=== PATIENT | female | born 1945 | race African-American/Black ===

== ENCOUNTER 2017-10-18 12:32 | Inpatient (IN) ==
[2017-10-18 14:20] LABS: Basophils # 0.1 10*3/uL (0.0-0.2); Basophils % 0.7 % (0.0-0.8); Eosinophils # 0.1 10*3/uL (0.0-0.87); Eosinophils % 0.7 % (0.00-10.9); Hematocrit 33.7 VOL% (35.7-47.0); Hemoglobin 11.8 GM/DL (12.0-16.0); Immature Granulocytes % 0.7 %; Immature Granulocytes Absolute 0.13 #; Lymphocytes # 2.9 10*3/uL (1.4-4.0); Lymphocytes % 16.7 % (21.3-54.2); Mean Corpuscular Hemoglobin 28 PG (27-34); Mean Corpuscular Volume 81.2 FL (87-102); Mean Platelet Volume 8.3 FL (9.6-12.0); Monocytes # 1.2 10*3/uL (0.11-0.8); Monocytes % 7.2 % (1.7-12.7); Neutrophils # 12.8 10*3/uL (1.4-7.4); Platelet Count 495 T/CUMM (130-400); Red Blood Count 4.15 MC/CUMM (3.8-5.5); Red Cell Distribution Width 13.4 % (9.3-17.3); White Blood Count 17.3 T/CUMM (4-12)
[2017-10-18 14:36] LABS: Albumin 2.9 G/DL (3.4-5.0); Bilirubin,Total 0.4 MG/DL (0.2-1.0); Calcium 8.6 MG/DL (8.5-10.1); Osmolality,Calculated 244.8 MOS/KG (273-304); Potassium 4.1 MMOL/L (3.5-5.1); Total Protein 9.4 G/DL (6.4-8.3)
[2017-10-18 15:39] LABS: Apearance,Urine CLOUDY (Clear); Bacteria,Urine Many /HPF (Few); Bilirubin,Urine Negative (Negative); Blood, Urine Negative (Negative); Glucose,Urine (UA) 150 mg/dL (Negative); Ketones,Urine Negative (Negative); Mucus,Urine Few /LPF (Occasional); Nitrite,Urine Negative (Negative); Protein,Urine 100 MG/DL; Squamous Epithelial Cell,Urine Occasional /HPF (0-10); Urine Color Yellow (Yellow); Urine Specific Gravity 1.011 (1.001-1.035); Urine Urobilinogen < 2.0 EU/DL (0.2-1.0); WBC,Urine 234 /HPF (0-6)
[2017-10-18] MEDS ORDERED: cefTRIAXone 1,000 MG in SODIUM CHLORIDE 0.9% 100 ML IV STA (17:27)
[2017-10-18] MEDS ORDERED: SODIUM CHLORIDE 0.9% 1,000 ML IV STA (17:27)
[2017-10-18] MEDS ORDERED: cefTRIAXone 1,000 MG VIAL ONE (18:27)
[2017-10-18 18:51] LABS: Lactic Acid 3.6 MMOL/L (0.4-2.0)
[2017-10-18] MEDS ORDERED: ACETAMINOPHEN 325 MG TABLET PO PRN (18:51)
[2017-10-18] MEDS ORDERED: LACTULOSE 20 GM/30 ML UDCUP PO PRN (18:51)
[2017-10-18] MEDS ORDERED: DOCUSATE SODIUM 100 MG CAPSULE PO PRN (18:51)
[2017-10-18] MEDS ORDERED: SODIUM CHLORIDE 0.9% 1,700 ML IV ONE (18:55)
[2017-10-18] MEDS ORDERED: GLUCAGON 1 MG VIAL IM PRN (18:58)
[2017-10-18] MEDS ORDERED: DEXTROSE 50% 25 GM/50 ML VIAL IV PRN (18:58)
[2017-10-18] MEDS: SODIUM CHLORIDE 0.9% 1,000 ML IV SCH (21:55)
[2017-10-18 22:03] LABS: Basophils # 0.1 10*3/uL (0.0-0.2); Basophils % 0.3 % (0.0-0.8); Eosinophils # 0.1 10*3/uL (0.0-0.87); Eosinophils % 0.4 % (0.00-10.9); Hematocrit 32.3 VOL% (35.7-47.0); Hemoglobin 11.1 GM/DL (12.0-16.0); Immature Granulocytes % 0.4 %; Immature Granulocytes Absolute 0.07 #; Lymphocytes # 3.3 10*3/uL (1.4-4.0); Lymphocytes % 19.5 % (21.3-54.2); Mean Corpuscular HGB Conc 34.4 GM/DL (32-36); Mean Corpuscular Hemoglobin 28 PG (27-34); Mean Corpuscular Volume 81.4 FL (87-102); Mean Platelet Volume 8.2 FL (9.6-12.0); Monocytes # 1.3 10*3/uL (0.11-0.8); Monocytes % 7.7 % (1.7-12.7); Neutrophils # 12.1 10*3/uL (1.4-7.4); Neutrophils % 71.7 % (38.7-73.9); Platelet Count 478 T/CUMM (130-400); Red Blood Count 3.97 MC/CUMM (3.8-5.5); Red Cell Distribution Width 13.1 % (9.3-17.3); White Blood Count 16.9 T/CUMM (4-12)
[2017-10-18] MEDS: LEVOFLOXACIN INJ 500 MG in PREMIX 1 EACH IV SCH (22:11)
[2017-10-18] MEDS: INSULIN LISPRO 100 UNIT/ML SUBCUT SCH (22:15)
[2017-10-18 22:20] LABS: Alanine Aminotransferase 13 U/L (13-56); Albumin 2.8 G/DL (3.4-5.0); Alkaline Phosphatase 85 U/L (45-117); Aspartate Amino Transferase 24 U/L (0-37); Bilirubin,Total < 0.39 MG/DL (0.2-1.0); Blood Urea Nitrogen 13 MG/DL (7-18); Calcium 8.4 MG/DL (8.5-10.1); Glucose 166 MG/DL (74-106); Osmolality,Calculated 256.4 MOS/KG (273-304); Potassium 4.5 MMOL/L (3.5-5.1); Sodium 126 MMOL/L (136-145); Total Protein 7.7 G/DL (6.4-8.3)
[2017-10-18 22:31] LABS: Calcium 8.3 MG/DL (8.5-10.1); Osmolality,Calculated 255.4 MOS/KG (273-304); Potassium 4.5 MMOL/L (3.5-5.1)
[2017-10-19 07:22] LABS: Basophils # 0.1 10*3/uL (0.0-0.2); Basophils % 0.4 % (0.0-0.8); Eosinophils # 0.2 10*3/uL (0.0-0.87); Hematocrit 28.7 VOL% (35.7-47.0); Hemoglobin 10.2 GM/DL (12.0-16.0); Immature Granulocytes % 0.4 %; Immature Granulocytes Absolute 0.07 #; Lymphocytes # 3.1 10*3/uL (1.4-4.0); Lymphocytes % 19.8 % (21.3-54.2); Mean Corpuscular HGB Conc 35.5 GM/DL (32-36); Mean Corpuscular Hemoglobin 28 PG (27-34); Mean Corpuscular Volume 79.1 FL (87-102); Mean Platelet Volume 8.3 FL (9.6-12.0); Monocytes # 1.4 10*3/uL (0.11-0.8); Monocytes % 8.7 % (1.7-12.7); Neutrophils # 10.8 10*3/uL (1.4-7.4); Neutrophils % 69.7 % (38.7-73.9); Platelet Count 440 T/CUMM (130-400); Red Blood Count 3.63 MC/CUMM (3.8-5.5); Red Cell Distribution Width 13.3 % (9.3-17.3); White Blood Count 15.6 T/CUMM (4-12)
[2017-10-19 07:49] LABS: Calcium 8.1 MG/DL (8.5-10.1); Osmolality,Calculated 258.1 MOS/KG (273-304); Potassium 4.1 MMOL/L (3.5-5.1)
[2017-10-19 07:51] LABS: Calcium 8.3 MG/DL (8.5-10.1); Osmolality,Calculated 258.1 MOS/KG (273-304); Potassium 4.1 MMOL/L (3.5-5.1)
[2017-10-19] MEDS: INSULIN LISPRO 100 UNIT/ML SUBCUT SCH ×4 (08:32→21:56)
[2017-10-19] MEDS: PANTOPRAZOLE 40 MG TABLET PO SCH (08:33)
[2017-10-19 11:25] LABS: Calcium 8.3 MG/DL (8.5-10.1); Osmolality,Calculated 260.1 MOS/KG (273-304)
[2017-10-19] MEDS: SODIUM CHLORIDE 0.9% 1,000 ML IV SCH (21:53)
[2017-10-19] MEDS: LEVOFLOXACIN INJ 500 MG in PREMIX 1 EACH IV SCH (21:54)
[2017-10-20] MEDS: PANTOPRAZOLE 40 MG TABLET PO SCH (09:09)
[2017-10-20] MEDS: INSULIN LISPRO 100 UNIT/ML SUBCUT SCH ×4 (09:09→23:59)
[2017-10-20] MEDS: SODIUM CHLORIDE 0.9% 1,000 ML IV SCH (17:06)
[2017-10-20] MEDS: LEVOFLOXACIN INJ 500 MG in PREMIX 1 EACH IV SCH (21:52)
[2017-10-21] MEDS: INSULIN LISPRO 100 UNIT/ML SUBCUT SCH (11:10)
[2017-10-21] MEDS: PANTOPRAZOLE 40 MG TABLET PO SCH (11:10)
[2017-10-21 12:53] VITALS: BP 138/82
== END 2017-10-21 12:30 | disposition home or self-care (01) | DRG 689 ==
LOC: N.ED 12:32 → N.EDINP 17:30 → N.2E 19:27
PROVIDERS: ADMIT Internal Medicine; ATTEND Internal Medicine

== ENCOUNTER 2017-10-26 14:14 | Inpatient (IN) ==
[2017-10-26] MEDS ORDERED: DEXTROSE 50% 25 GM/50 ML VIAL IV PRN ×2 (15:43→18:59)
[2017-10-26] MEDS ORDERED: GLUCAGON 1 MG VIAL IM PRN ×2 (15:43→18:59)
[2017-10-26 16:45] LABS: Basophils % 0.2 % (0.0-0.8); Eosinophils % 0.2 % (0.00-10.9); Hematocrit 36.3 VOL% (35.7-47.0); Hemoglobin 12.5 GM/DL (12.0-16.0); Immature Granulocytes % 0.7 %; Immature Granulocytes Absolute 0.09 #; Lymphocytes # 1.9 10*3/uL (1.4-4.0); Lymphocytes % 14.1 % (21.3-54.2); Mean Corpuscular HGB Conc 34.4 GM/DL (32-36); Mean Corpuscular Hemoglobin 28 PG (27-34); Mean Corpuscular Volume 81.4 FL (87-102); Mean Platelet Volume 7.9 FL (9.6-12.0); Monocytes # 0.7 10*3/uL (0.11-0.8); Monocytes % 5.1 % (1.7-12.7); Neutrophils # 10.5 10*3/uL (1.4-7.4); Neutrophils % 79.7 % (38.7-73.9); Platelet Count 560 T/CUMM (130-400); Red Blood Count 4.46 MC/CUMM (3.8-5.5); Red Cell Distribution Width 14.1 % (9.3-17.3); White Blood Count 13.2 T/CUMM (4-12)
[2017-10-26 17:09] LABS: Albumin 3.2 G/DL (3.4-5.0); Bilirubin,Total 0.7 MG/DL (0.2-1.0); Calcium 8.7 MG/DL (8.5-10.1); Osmolality,Calculated 257.8 MOS/KG (273-304); Potassium 4.3 MMOL/L (3.5-5.1); Total Protein 7.8 G/DL (6.4-8.3)
[2017-10-26 17:58] LABS: Apearance,Urine CLEAR (Clear); Bacteria,Urine Few /HPF (Few); Bilirubin,Urine Negative (Negative); Blood, Urine Negative (Negative); Glucose,Urine (UA) 50 mg/dL (Negative); Hyaline Casts,Urine 2 /LPF (0-3); Ketones,Urine Negative (Negative); Mucus,Urine Occasional /LPF (Occasional); Nitrite,Urine Negative (Negative); Protein,Urine 100 MG/DL; Urine Color Yellow (Yellow); Urine Specific Gravity 1.008 (1.001-1.035); Urine Urobilinogen < 2.0 EU/DL (0.2-1.0)
[2017-10-26] MEDS ORDERED: ONDANSETRON 4 MG/2 ML VIAL IV PRN (18:55)
[2017-10-26] MEDS ORDERED: ACETAMINOPHEN 325 MG TABLET PO PRN (18:55)
[2017-10-26] MEDS: SODIUM CHLORIDE 0.9% 1,000 ML IV SCH (21:25)
[2017-10-26] MEDS: CIPROFLOXACIN INJ 400 MG in PREMIX 1 EACH IV SCH (21:27)
[2017-10-26] MEDS: INSULIN REGULAR 100 UNIT/ML SUBCUT SCH (21:28)
[2017-10-27 05:18] LABS: Basophils % 0.3 % (0.0-0.8); Eosinophils # 0.1 10*3/uL (0.0-0.87); Eosinophils % 0.6 % (0.00-10.9); Hematocrit 31.2 VOL% (35.7-47.0); Hemoglobin 10.6 GM/DL (12.0-16.0); Immature Granulocytes % 0.4 %; Immature Granulocytes Absolute 0.05 #; Lymphocytes # 3.5 10*3/uL (1.4-4.0); Lymphocytes % 27.8 % (21.3-54.2); Mean Corpuscular Hemoglobin 28 PG (27-34); Mean Corpuscular Volume 82.5 FL (87-102); Mean Platelet Volume 8.2 FL (9.6-12.0); Monocytes # 1.3 10*3/uL (0.11-0.8); Monocytes % 10.5 % (1.7-12.7); Neutrophils # 7.7 10*3/uL (1.4-7.4); Neutrophils % 60.4 % (38.7-73.9); Platelet Count 491 T/CUMM (130-400); Red Blood Count 3.78 MC/CUMM (3.8-5.5); Red Cell Distribution Width 14.1 % (9.3-17.3); White Blood Count 12.7 T/CUMM (4-12)
[2017-10-27 05:36] LABS: Calcium 8.5 MG/DL (8.5-10.1); Osmolality,Calculated 247.9 MOS/KG (273-304); Potassium 4.3 MMOL/L (3.5-5.1)
[2017-10-27] MEDS: INSULIN REGULAR 100 UNIT/ML SUBCUT SCH ×4 (09:00→20:17)
[2017-10-27] MEDS: CIPROFLOXACIN INJ 400 MG in PREMIX 1 EACH IV SCH ×2 (10:40→20:18)
[2017-10-27] MEDS: SODIUM CHLORIDE 0.9% 1,000 ML IV SCH (10:40)
[2017-10-27] MEDS: ASPIRIN EC 81 MG TABLET PO SCH (10:42)
[2017-10-27] MEDS: CHOLECALCIFEROL 5,000 UNIT TABLET PO SCH (10:42)
[2017-10-27] MEDS: PANTOPRAZOLE 40 MG TABLET PO SCH (10:42)
[2017-10-28] MEDS: SODIUM CHLORIDE 0.9% 1,000 ML IV SCH ×2 (01:39→19:57)
[2017-10-28 06:40] LABS: Calcium 8.3 MG/DL (8.5-10.1); Osmolality,Calculated 263.8 MOS/KG (273-304); Potassium 4.3 MMOL/L (3.5-5.1)
[2017-10-28] MEDS: CIPROFLOXACIN INJ 400 MG in PREMIX 1 EACH IV SCH ×2 (09:04→20:58)
[2017-10-28] MEDS: INSULIN REGULAR 100 UNIT/ML SUBCUT SCH ×4 (09:07→20:59)
[2017-10-28] MEDS: CHOLECALCIFEROL 5,000 UNIT TABLET PO SCH (09:08)
[2017-10-28] MEDS: ASPIRIN EC 81 MG TABLET PO SCH (09:08)
[2017-10-28] MEDS: PANTOPRAZOLE 40 MG TABLET PO SCH (09:09)
[2017-10-28] MEDS: metFORMIN 500 MG TABLET PO SCH (10:39)
[2017-10-28] MEDS ORDERED: POLYETHYLENE GLYCOL POWDER 17 GM PACK PO PRN (17:41)
[2017-10-29] MEDS: SODIUM CHLORIDE 0.9% 1,000 ML IV SCH (02:30)
[2017-10-29 06:19] LABS: Basophils # 0.1 10*3/uL (0.0-0.2); Basophils % 0.7 % (0.0-0.8); Eosinophils # 0.3 10*3/uL (0.0-0.87); Eosinophils % 2.2 % (0.00-10.9); Hematocrit 29.4 VOL% (35.7-47.0); Hemoglobin 10.1 GM/DL (12.0-16.0); Immature Granulocytes % 0.3 %; Immature Granulocytes Absolute 0.03 #; Lymphocytes % 25.3 % (21.3-54.2); Mean Corpuscular HGB Conc 34.4 GM/DL (32-36); Mean Corpuscular Hemoglobin 28 PG (27-34); Mean Corpuscular Volume 82.4 FL (87-102); Monocytes # 1.3 10*3/uL (0.11-0.8); Monocytes % 11.2 % (1.7-12.7); Neutrophils # 7.1 10*3/uL (1.4-7.4); Neutrophils % 60.3 % (38.7-73.9); Platelet Count 393 T/CUMM (130-400); Red Blood Count 3.57 MC/CUMM (3.8-5.5); Red Cell Distribution Width 14.4 % (9.3-17.3); White Blood Count 11.7 T/CUMM (4-12)
[2017-10-29 06:54] LABS: Calcium 8.1 MG/DL (8.5-10.1); Osmolality,Calculated 263.7 MOS/KG (273-304); Potassium 4.3 MMOL/L (3.5-5.1)
[2017-10-29] MEDS: CHOLECALCIFEROL 5,000 UNIT TABLET PO SCH (09:18)
[2017-10-29] MEDS: ASPIRIN EC 81 MG TABLET PO SCH (09:18)
[2017-10-29] MEDS: metFORMIN 500 MG TABLET PO SCH (09:18)
[2017-10-29] MEDS: PANTOPRAZOLE 40 MG TABLET PO SCH (09:20)
[2017-10-29] MEDS: INSULIN REGULAR 100 UNIT/ML SUBCUT SCH (09:22)
[2017-10-29] MEDS: CIPROFLOXACIN INJ 400 MG in PREMIX 1 EACH IV SCH (09:35)
[2017-10-29 11:17] VITALS: BP 125/92
== END 2017-10-29 12:12 | disposition home or self-care (01) | DRG 637 ==
LOC: EDBD → EDUNIT# → N.ED 14:14 → N.EDINP 18:11 → N.3E 19:59

== ENCOUNTER 2017-12-17 10:39 | Inpatient (IN) ==
[2017-12-17] MEDS ORDERED: NALOXONE 0.4 MG/ML VIAL ONE (10:59)
[2017-12-17] MEDS ORDERED: NALOXONE 0.4 MG/ML VIAL IV STA (11:05)
[2017-12-17] MEDS ORDERED: SODIUM CHLORIDE 0.9% 1,000 ML IV STA (11:05)
[2017-12-17] MEDS ORDERED: VECURONIUM 10 MG VIAL IV ONE (11:32)
[2017-12-17] MEDS ORDERED: ETOMIDATE 20 MG/10 ML VIAL IV ONE (11:32)
[2017-12-17] MEDS ORDERED: MIDAZOLAM 2 MG/2 ML VIAL ONE (11:43)
[2017-12-17 11:45] LABS: Basophils # 0.1 10*3/uL (0.0-0.2); Basophils % 0.7 % (0.0-0.8); Eosinophils # 0.2 10*3/uL (0.0-0.87); Eosinophils % 1.6 % (0.00-10.9); Hematocrit 32.5 VOL% (35.7-47.0); Hemoglobin 10.9 GM/DL (12.0-16.0); Immature Granulocytes % 0.5 %; Immature Granulocytes Absolute 0.07 #; Lymphocytes # 4.8 10*3/uL (1.4-4.0); Lymphocytes % 33.4 % (21.3-54.2); Mean Corpuscular HGB Conc 33.5 GM/DL (32-36); Mean Corpuscular Hemoglobin 29 PG (27-34); Mean Platelet Volume 9.2 FL (9.6-12.0); Monocytes # 0.8 10*3/uL (0.11-0.8); Monocytes % 5.9 % (1.7-12.7); Neutrophils # 8.3 10*3/uL (1.4-7.4); Neutrophils % 57.9 % (38.7-73.9); Platelet Count 361 T/CUMM (130-400); Red Blood Count 3.78 MC/CUMM (3.8-5.5); Red Cell Distribution Width 15.1 % (9.3-17.3); White Blood Count 14.3 T/CUMM (4-12)
[2017-12-17 11:54] LABS: PT Patient Result 10.1 SECS; Partial Thromboplastin Time 24.7 SECS (0-40)
[2017-12-17] MEDS ORDERED: PHENYLEPHRINE DRIP 40 MG/250 ML PREMIX IV ONE (12:00)
[2017-12-17] MEDS ORDERED: ETOMIDATE 20 MG/10 ML VIAL IV STA (12:07)
[2017-12-17] MEDS ORDERED: MIDAZOLAM 2 MG/2 ML VIAL IV STA (12:07)
[2017-12-17] MEDS ORDERED: VECURONIUM 10 MG VIAL IV STA (12:07)
[2017-12-17 12:20] LABS: Ammonia 18 UMOL/L (11-32)
[2017-12-17 12:24] LABS: Troponin I Only 0.016 NG/ML (0.00-0.045)
[2017-12-17 12:25] LABS: Troponin I Only 0.024 NG/ML (0.00-0.045)
[2017-12-17 12:27] LABS: Lactic Acid 3.5 MMOL/L (0.4-2.0)
[2017-12-17] MEDS ORDERED: MAGNESIUM SULF RIDER 2 GM in PREMIX 1 EACH IV STA (12:38)
[2017-12-17 12:39] LABS: Apearance,Urine CLEAR (Clear); Bacteria,Urine Occasional /HPF (Few); Bilirubin,Urine Negative (Negative); Blood, Urine Negative (Negative); Glucose,Urine (UA) 150 mg/dL (Negative); Hyaline Casts,Urine 3 /LPF (0-3); Ketones,Urine Negative (Negative); Mucus,Urine Occasional /LPF (Occasional); Nitrite,Urine Negative (Negative); Protein,Urine 100 MG/DL; RBC,Urine 11 /HPF (0-4); Urine Color Yellow (Yellow); Urine Specific Gravity 1.015 (1.001-1.035); Urine Urobilinogen < 2.0 EU/DL (0.2-1.0); WBC,Urine 1 /HPF (0-6)
[2017-12-17] MEDS ORDERED: SODIUM CHLORIDE 0.9% 1,900 ML IV ONE ×2 (12:39→15:17)
[2017-12-17] MEDS ORDERED: MAGNESIUM SULF RIDER 50 ML IV ONE (12:44)
[2017-12-17 12:45] LABS: Barbiturates Screen,Urine Negative (Negative); Benzodiazepines Screen,Urine Negative (Negative); Cannabinoid Screen,Urine Negative (Negative); Opiate Screen,Urine Negative (Negative); Phencyclidine Screen,Urine Negative (Negative)
[2017-12-17 13:03] LABS: ABG Base Excess -2.5 MMOL/L (-2.5-2.5); ABG HCO3 22.4 MMOL/L (20-26); ABG PCO2 32.5 MM HG (35-48); ABG PH 7.424 (7.35-7.45); ABG TCO2 19.3 MMOL/L (23-27)
[2017-12-17] MEDS ORDERED: PROPOFOL 1,000 MG/100 ML BOTTLE IV ONE (13:22)
[2017-12-17] MEDS: SODIUM CHLORIDE 0.9% 1,000 ML IV SCH ×2 (13:37→23:50)
[2017-12-17] MEDS: PROPOFOL 1,000 MG/100 ML BOTTLE IV SCH ×2 (13:44→20:36)
[2017-12-17] MEDS ORDERED: VANCOMYCIN 1,000 MG VIAL ONE (13:56)
[2017-12-17 13:59] LABS: Alanine Aminotransferase 14 U/L (13-56); Albumin 2.6 G/DL (3.4-5.0); Alkaline Phosphatase 51 U/L (45-117); Aspartate Amino Transferase 12 U/L (0-37); Bilirubin,Total < 0.39 MG/DL (0.2-1.0); Blood Urea Nitrogen 28 MG/DL (7-18); Calcium 9.1 MG/DL (8.5-10.1); Glucose 208 MG/DL (74-106); Potassium 4.2 MMOL/L (3.5-5.1); Sodium 136 MMOL/L (136-145); Total Protein 6.8 G/DL (6.4-8.3)
[2017-12-17] MEDS: VANCOMYCIN INJ 1,000 MG in SODIUM CHLORIDE 0.9% 250 ML IV SCH (14:21)
[2017-12-17] MEDS: AZTREONAM 2,000 MG in SYRINGE 1 EACH IV SCH ×2 (16:48→21:59)
[2017-12-17 19:37] LABS: Free T4 (Free Thyroxine) 1.04 NG/DL (0.76-1.46); Thyroid Stimulating Hormone 1.25 uIU/ml (0.358-3.74)
[2017-12-17 19:39] LABS: Folate 15.4 NG/ML (5.4-24.0)
[2017-12-17 19:49] LABS: % Iron Saturation 19.8 % (18-50)
[2017-12-18] MEDS: VANCOMYCIN INJ 1,000 MG in SODIUM CHLORIDE 0.9% 250 ML IV SCH ×2 (00:17→13:31)
[2017-12-18] MEDS: PROPOFOL 1,000 MG/100 ML BOTTLE IV SCH ×4 (01:52→22:01)
[2017-12-18 03:27] LABS: ABG Base Excess -0.5 MMOL/L (-2.5-2.5); ABG HCO3 24.1 MMOL/L (20-26); ABG PCO2 29.2 MM HG (35-48); ABG TCO2 20.3 MMOL/L (23-27)
[2017-12-18] MEDS: AZTREONAM 2,000 MG in SYRINGE 1 EACH IV SCH ×4 (03:50→21:59)
[2017-12-18 04:32] LABS: Basophils # 0.1 10*3/uL (0.0-0.2); Basophils % 0.5 % (0.0-0.8); Eosinophils # 0.2 10*3/uL (0.0-0.87); Hematocrit 28.2 VOL% (35.7-47.0); Hemoglobin 9.2 GM/DL (12.0-16.0); Immature Granulocytes % 0.5 %; Immature Granulocytes Absolute 0.07 #; Lymphocytes # 3.1 10*3/uL (1.4-4.0); Lymphocytes % 21.5 % (21.3-54.2); Mean Corpuscular HGB Conc 32.6 GM/DL (32-36); Mean Corpuscular Hemoglobin 28 PG (27-34); Mean Platelet Volume 9.2 FL (9.6-12.0); Monocytes # 0.8 10*3/uL (0.11-0.8); Monocytes % 5.2 % (1.7-12.7); Neutrophils # 10.4 10*3/uL (1.4-7.4); Neutrophils % 71.3 % (38.7-73.9); Platelet Count 333 T/CUMM (130-400); Red Blood Count 3.28 MC/CUMM (3.8-5.5); Red Cell Distribution Width 14.7 % (9.3-17.3); White Blood Count 14.6 T/CUMM (4-12)
[2017-12-18 05:06] LABS: Lactic Acid 2.1 MMOL/L (0.4-2.0)
[2017-12-18 05:07] LABS: Albumin 2.4 G/DL (3.4-5.0); Bilirubin,Total 0.4 MG/DL (0.2-1.0); Calcium 8.2 MG/DL (8.5-10.1); Osmolality,Calculated 282.5 MOS/KG (273-304); Potassium 3.9 MMOL/L (3.5-5.1); Total Protein 5.9 G/DL (6.4-8.3)
[2017-12-18] MEDS: SODIUM CHLORIDE 0.9% 1,000 ML IV SCH ×3 (07:27→23:44)
[2017-12-18] MEDS: INSULIN REGULAR 100 UNIT/ML SUBCUT SCH ×3 (12:05→20:34)
[2017-12-18] MEDS: hydrALAZINE 20 MG/1 ML VIAL IV PRN (22:07)
[2017-12-19] MEDS: VANCOMYCIN INJ 1,000 MG in SODIUM CHLORIDE 0.9% 250 ML IV SCH ×2 (00:55→13:31)
[2017-12-19 03:14] LABS: ABG Base Excess -2.8 MMOL/L (-2.5-2.5); ABG HCO3 22.1 MMOL/L (20-26); ABG Oxygen Saturation 99.9 % (95-100); ABG PCO2 28.2 MM HG (35-48); ABG PH 7.464 (7.35-7.45); ABG TCO2 18.8 MMOL/L (23-27)
[2017-12-19] MEDS: AZTREONAM 2,000 MG in SYRINGE 1 EACH IV SCH ×4 (03:50→22:45)
[2017-12-19] MEDS: PROPOFOL 1,000 MG/100 ML BOTTLE IV SCH ×2 (03:51→17:58)
[2017-12-19 05:22] LABS: Calcium 7.5 MG/DL (8.5-10.1); Osmolality,Calculated 283.1 MOS/KG (273-304); Potassium 3.3 MMOL/L (3.5-5.1)
[2017-12-19] MEDS: SODIUM CHLORIDE 0.9% 1,000 ML IV SCH ×2 (08:05→16:35)
[2017-12-19] MEDS: INSULIN REGULAR 100 UNIT/ML SUBCUT SCH ×4 (08:06→21:06)
[2017-12-19] MEDS ORDERED: MAGNESIUM SULF RIDER 4 GM in PREMIX 1 EACH IV PRN (10:26)
[2017-12-19] MEDS: POTASSIUM CHLORIDE 20 MEQ/15 ML UDCUP PER TUBE PRN ×2 (10:35→20:30)
[2017-12-19 11:07] LABS: ABG Base Excess -4.4 MMOL/L (-2.5-2.5); ABG HCO3 20.7 MMOL/L (20-26); ABG Oxygen Saturation 97.6 % (95-100); ABG PCO2 33.7 MM HG (35-48); ABG PH 7.382 (7.35-7.45); ABG PO2 98.9 MM HG (80-95); ABG TCO2 18.5 MMOL/L (23-27)
[2017-12-19] MEDS: hydrALAZINE 20 MG/1 ML VIAL IV PRN (17:48)
[2017-12-20] MEDS: SODIUM CHLORIDE 0.9% 1,000 ML IV SCH ×3 (00:55→21:44)
[2017-12-20] MEDS: PROPOFOL 1,000 MG/100 ML BOTTLE IV SCH ×3 (01:05→21:44)
[2017-12-20] MEDS: VANCOMYCIN INJ 1,000 MG in SODIUM CHLORIDE 0.9% 250 ML IV SCH ×2 (01:35→14:01)
[2017-12-20] MEDS: AZTREONAM 2,000 MG in SYRINGE 1 EACH IV SCH ×4 (04:25→23:40)
[2017-12-20 05:15] LABS: Pt O2 Delivery Device Ventilator
[2017-12-20 05:26] LABS: ABG Base Excess -5.3 MMOL/L (-2.5-2.5); ABG HCO3 19.9 MMOL/L (20-26); ABG PCO2 28.5 MM HG (35-48); ABG PH 7.424 (7.35-7.45); ABG TCO2 18.2 MMOL/L (23-27)
[2017-12-20 05:47] LABS: Basophils # 0.1 10*3/uL (0.0-0.2); Basophils % 0.7 % (0.0-0.8); Eosinophils # 0.4 10*3/uL (0.0-0.87); Hematocrit 24.9 VOL% (35.7-47.0); Hemoglobin 8.5 GM/DL (12.0-16.0); Immature Granulocytes % 0.6 %; Immature Granulocytes Absolute 0.07 #; Lymphocytes # 2.4 10*3/uL (1.4-4.0); Lymphocytes % 20.1 % (21.3-54.2); Mean Corpuscular HGB Conc 34.1 GM/DL (32-36); Mean Corpuscular Hemoglobin 29 PG (27-34); Mean Platelet Volume 9.3 FL (9.6-12.0); Monocytes # 0.5 10*3/uL (0.11-0.8); Monocytes % 4.5 % (1.7-12.7); Neutrophils # 8.3 10*3/uL (1.4-7.4); Neutrophils % 71.1 % (38.7-73.9); Platelet Count 311 T/CUMM (130-400); Red Blood Count 2.93 MC/CUMM (3.8-5.5); Red Cell Distribution Width 15.5 % (9.3-17.3); White Blood Count 11.7 T/CUMM (4-12)
[2017-12-20 06:18] LABS: Calcium 7.3 MG/DL (8.5-10.1); Osmolality,Calculated 284.8 MOS/KG (273-304); Potassium 3.6 MMOL/L (3.5-5.1)
[2017-12-20 09:12] LABS: ABG Base Excess -7.1 MMOL/L (-2.5-2.5); ABG HCO3 18.6 MMOL/L (20-26); ABG Oxygen Saturation 94.4 % (95-100); ABG PCO2 31.3 MM HG (35-48); ABG PH 7.357 (7.35-7.45); ABG PO2 74.1 MM HG (80-95); ABG TCO2 16.2 MMOL/L (23-27)
[2017-12-20] MEDS: INSULIN REGULAR 100 UNIT/ML SUBCUT SCH ×3 (10:20→17:42)
[2017-12-20] MEDS: methylPREDNISolone SOD SUC 40 MG/1 ML VIAL IV SCH ×2 (10:48→18:22)
[2017-12-20] MEDS ORDERED: GLUCAGON 1 MG VIAL IM PRN (11:18)
[2017-12-20] MEDS ORDERED: DEXTROSE 50% 25 GM/50 ML VIAL IV PRN (11:18)
[2017-12-20] MEDS: MAGNESIUM SULF RIDER 2 GM in PREMIX 1 EACH IV PRN (13:12)
[2017-12-20] MEDS: ENOXAPARIN 60 MG/0.6 ML SYRINGE SUBCUT SCH (17:42)
[2017-12-20] MEDS: PANTOPRAZOLE 40 MG VIAL IV SCH (17:44)
[2017-12-20] MEDS: MIRTAZAPINE 15 MG TABLET PO SCH (21:45)
[2017-12-20] MEDS: GABAPENTIN 100 MG CAPSULE PO SCH (21:45)
[2017-12-21] MEDS: INSULIN REGULAR 100 UNIT/ML SUBCUT SCH ×6 (00:05→20:45)
[2017-12-21 04:04] LABS: Allen Test Positive; Pt O2 Delivery Device Ventilator
[2017-12-21 04:08] LABS: ABG Base Excess -7.3 MMOL/L (-2.5-2.5); ABG HCO3 17.5 MMOL/L (20-26); ABG Oxygen Saturation 98.8 % (95-100); ABG PCO2 32.7 MM HG (35-48); ABG PH 7.347 (7.35-7.45); ABG PO2 240.3 MM HG (80-95); ABG TCO2 18.5 MMOL/L (23-27)
[2017-12-21] MEDS: SODIUM CHLORIDE 0.9% 1,000 ML IV SCH ×4 (04:19→22:05)
[2017-12-21] MEDS: methylPREDNISolone SOD SUC 40 MG/1 ML VIAL IV SCH ×3 (04:22→18:01)
[2017-12-21] MEDS: VANCOMYCIN INJ 1,000 MG in SODIUM CHLORIDE 0.9% 250 ML IV SCH ×2 (04:23→14:02)
[2017-12-21] MEDS: ENOXAPARIN 60 MG/0.6 ML SYRINGE SUBCUT SCH ×2 (04:25→17:49)
[2017-12-21] MEDS: AZTREONAM 2,000 MG in SYRINGE 1 EACH IV SCH ×4 (04:26→22:00)
[2017-12-21 06:18] LABS: Basophils % 0.1 % (0.0-0.8); Hematocrit 30.9 VOL% (35.7-47.0); Hemoglobin 10.1 GM/DL (12.0-16.0); Immature Granulocytes % 0.7 %; Immature Granulocytes Absolute 0.09 #; Lymphocytes # 1.9 10*3/uL (1.4-4.0); Lymphocytes % 14.4 % (21.3-54.2); Mean Corpuscular HGB Conc 32.7 GM/DL (32-36); Mean Corpuscular Hemoglobin 28 PG (27-34); Mean Corpuscular Volume 86.3 FL (87-102); Mean Platelet Volume 9.6 FL (9.6-12.0); Monocytes # 0.5 10*3/uL (0.11-0.8); Neutrophils # 10.9 10*3/uL (1.4-7.4); Neutrophils % 80.8 % (38.7-73.9); Platelet Count 375 T/CUMM (130-400); Red Blood Count 3.58 MC/CUMM (3.8-5.5); Red Cell Distribution Width 15.8 % (9.3-17.3); White Blood Count 13.4 T/CUMM (4-12)
[2017-12-21 06:51] LABS: Band Neutrophils 1 % (0-10); Burr Cells Few; Hypochromasia 1+; Lymphocytes 12 % (20-55); Microcytosis 1+; Segmented Neutrophils 82 % (50-85); Total Cells Counted 100
[2017-12-21 06:52] LABS: Ovalocytes Slight
[2017-12-21 07:28] LABS: ABG Base Excess -7.6 MMOL/L (-2.5-2.5); ABG HCO3 18.2 MMOL/L (20-26); ABG Oxygen Saturation 98.4 % (95-100); ABG PCO2 40.2 MM HG (35-48); ABG PH 7.277 (7.35-7.45); ABG TCO2 17.5 MMOL/L (23-27)
[2017-12-21 07:42] LABS: Prealbumin 10.4 MG/DL (20-40)
[2017-12-21 07:49] LABS: Calcium 7.9 MG/DL (8.5-10.1); Osmolality,Calculated 294.8 MOS/KG (273-304); Potassium 3.8 MMOL/L (3.5-5.1)
[2017-12-21] MEDS: LOSARTAN 50 MG TABLET PO SCH (09:33)
[2017-12-21] MEDS: GABAPENTIN 100 MG CAPSULE PO SCH ×2 (09:33→20:31)
[2017-12-21] MEDS: CHOLECALCIFEROL 5,000 UNIT TABLET PO SCH (09:33)
[2017-12-21] MEDS: PANTOPRAZOLE 40 MG VIAL IV SCH (09:33)
[2017-12-21 10:08] LABS: ABG Base Excess -6.3 MMOL/L (-2.5-2.5); ABG HCO3 19.3 MMOL/L (20-26); ABG PH 7.324 (7.35-7.45); ABG TCO2 17.8 MMOL/L (23-27)
[2017-12-21] MEDS ORDERED: ALBUTEROL/IPRATROPIUM 3 ML NEB RESP TX PRN (10:24)
[2017-12-21] MEDS: ALBUTEROL/IPRATROPIUM 3 ML NEB RESP TX SCH ×2 (12:29→19:18)
[2017-12-21] MEDS: PROPOFOL 1,000 MG/100 ML BOTTLE IV SCH (15:16)
[2017-12-21] MEDS: MIRTAZAPINE 15 MG TABLET PO SCH (20:31)
[2017-12-22] MEDS: ALBUTEROL/IPRATROPIUM 3 ML NEB RESP TX SCH ×4 (00:47→20:13)
[2017-12-22 03:53] LABS: Basophils % 0.1 % (0.0-0.8); Hematocrit 28.8 VOL% (35.7-47.0); Hemoglobin 9.6 GM/DL (12.0-16.0); Immature Granulocytes % 0.7 %; Immature Granulocytes Absolute 0.11 #; Lymphocytes # 1.7 10*3/uL (1.4-4.0); Lymphocytes % 10.9 % (21.3-54.2); Mean Corpuscular HGB Conc 33.3 GM/DL (32-36); Mean Corpuscular Hemoglobin 29 PG (27-34); Mean Corpuscular Volume 86.2 FL (87-102); Mean Platelet Volume 9.5 FL (9.6-12.0); Monocytes # 0.7 10*3/uL (0.11-0.8); Monocytes % 4.8 % (1.7-12.7); Neutrophils # 12.6 10*3/uL (1.4-7.4); Neutrophils % 83.5 % (38.7-73.9); Platelet Count 392 T/CUMM (130-400); Red Blood Count 3.34 MC/CUMM (3.8-5.5); White Blood Count 15.1 T/CUMM (4-12)
[2017-12-22] MEDS: VANCOMYCIN INJ 1,000 MG in SODIUM CHLORIDE 0.9% 250 ML IV SCH ×2 (04:00→14:20)
[2017-12-22] MEDS: methylPREDNISolone SOD SUC 40 MG/1 ML VIAL IV SCH ×2 (04:01→16:56)
[2017-12-22] MEDS: AZTREONAM 2,000 MG in SYRINGE 1 EACH IV SCH ×4 (04:02→22:08)
[2017-12-22] MEDS: ENOXAPARIN 60 MG/0.6 ML SYRINGE SUBCUT SCH ×2 (04:02→17:07)
[2017-12-22 04:47] LABS: Calcium 8.2 MG/DL (8.5-10.1); Osmolality,Calculated 295.6 MOS/KG (273-304); Potassium 3.9 MMOL/L (3.5-5.1)
[2017-12-22 07:52] LABS: Band Neutrophils 2 % (0-10); Lymphocytes 13 % (20-55); Segmented Neutrophils 82 % (50-85); Total Cells Counted 100
[2017-12-22 07:55] LABS: Burr Cells 2+; Hypochromasia Slight; Platelet Estimate Adequate; Target Cells Slight
[2017-12-22] MEDS: PANTOPRAZOLE 40 MG VIAL IV SCH (08:31)
[2017-12-22] MEDS: INSULIN REGULAR 100 UNIT/ML SUBCUT SCH ×4 (08:32→21:42)
[2017-12-22] MEDS: CHOLECALCIFEROL 5,000 UNIT TABLET PO SCH ×2 (08:32→11:22)
[2017-12-22] MEDS: LOSARTAN 50 MG TABLET PO SCH (08:32)
[2017-12-22] MEDS: GABAPENTIN 100 MG CAPSULE PO SCH ×4 (08:32→21:43)
[2017-12-22] MEDS: amLODIPine 2.5 MG TABLET PO SCH (08:32)
[2017-12-22] MEDS: MULTIVITAMIN LIQUID (CENTRUM) 60 ML BOTTLE PO SCH (08:51)
[2017-12-22] MEDS: SODIUM CHLORIDE 0.9% 1,000 ML IV SCH ×2 (09:05→17:09)
[2017-12-22] MEDS ORDERED: NON-FORMULARY MEDICATION (Losartan Potassium [Cozaar] 100 MG) PO SCH (10:14)
[2017-12-22] MEDS: PROPOFOL 1,000 MG/100 ML BOTTLE IV SCH (11:25)
[2017-12-22] MEDS: MIRTAZAPINE 15 MG TABLET PO SCH (21:42)
[2017-12-22] MEDS: INSULIN GLARGINE 100 UNIT/ML SUBCUT SCH (21:42)
[2017-12-23] MEDS: ALBUTEROL/IPRATROPIUM 3 ML NEB RESP TX SCH ×4 (01:00→19:40)
[2017-12-23] MEDS: VANCOMYCIN INJ 1,000 MG in SODIUM CHLORIDE 0.9% 250 ML IV SCH ×2 (01:20→13:24)
[2017-12-23] MEDS: AZTREONAM 2,000 MG in SYRINGE 1 EACH IV SCH ×4 (05:04→22:04)
[2017-12-23] MEDS: methylPREDNISolone SOD SUC 40 MG/1 ML VIAL IV SCH ×2 (05:05→18:28)
[2017-12-23] MEDS: ENOXAPARIN 60 MG/0.6 ML SYRINGE SUBCUT SCH ×2 (05:05→17:02)
[2017-12-23 06:49] LABS: Basophils % 0.1 % (0.0-0.8); Hematocrit 29.7 VOL% (35.7-47.0); Hemoglobin 9.7 GM/DL (12.0-16.0); Immature Granulocytes % 1.1 %; Immature Granulocytes Absolute 0.11 #; Lymphocytes # 1.5 10*3/uL (1.4-4.0); Lymphocytes % 15.1 % (21.3-54.2); Mean Corpuscular HGB Conc 32.7 GM/DL (32-36); Mean Corpuscular Hemoglobin 28 PG (27-34); Mean Corpuscular Volume 86.3 FL (87-102); Mean Platelet Volume 9.2 FL (9.6-12.0); Monocytes # 0.5 10*3/uL (0.11-0.8); Monocytes % 5.4 % (1.7-12.7); Neutrophils # 7.5 10*3/uL (1.4-7.4); Neutrophils % 78.3 % (38.7-73.9); Platelet Count 386 T/CUMM (130-400); Red Blood Count 3.44 MC/CUMM (3.8-5.5); Red Cell Distribution Width 16.4 % (9.3-17.3); White Blood Count 9.6 T/CUMM (4-12)
[2017-12-23 07:20] LABS: Calcium 8.3 MG/DL (8.5-10.1); Osmolality,Calculated 296.3 MOS/KG (273-304); Potassium 3.5 MMOL/L (3.5-5.1)
[2017-12-23] MEDS: CHOLECALCIFEROL 5,000 UNIT TABLET PO SCH ×2 (10:25→10:28)
[2017-12-23] MEDS: LOSARTAN 50 MG TABLET PO SCH (10:26)
[2017-12-23] MEDS: PANTOPRAZOLE 40 MG VIAL IV SCH (10:28)
[2017-12-23] MEDS: GABAPENTIN 100 MG CAPSULE PO SCH ×4 (10:33→21:47)
[2017-12-23] MEDS: INSULIN REGULAR 100 UNIT/ML SUBCUT SCH ×4 (10:33→21:40)
[2017-12-23] MEDS: CYANOCOBALAMIN 1000 MCG/1 ML VIAL IM SCH (10:36)
[2017-12-23] MEDS: amLODIPine 2.5 MG TABLET PO SCH (10:40)
[2017-12-23] MEDS: SODIUM CHLORIDE 0.9% 1,000 ML IV SCH ×2 (11:24→17:00)
[2017-12-23] MEDS: MULTIVITAMIN LIQUID (CENTRUM) 60 ML BOTTLE PO SCH (18:31)
[2017-12-23] MEDS: hydrALAZINE 20 MG/1 ML VIAL IV PRN (21:35)
[2017-12-23] MEDS: INSULIN GLARGINE 100 UNIT/ML SUBCUT SCH (21:36)
[2017-12-23] MEDS: MIRTAZAPINE 15 MG TABLET PO SCH (21:40)
[2017-12-24] MEDS: VANCOMYCIN INJ 1,000 MG in SODIUM CHLORIDE 0.9% 250 ML IV SCH (01:04)
[2017-12-24] MEDS: ALBUTEROL/IPRATROPIUM 3 ML NEB RESP TX SCH ×4 (01:39→19:59)
[2017-12-24] MEDS: AZTREONAM 2,000 MG in SYRINGE 1 EACH IV SCH ×2 (04:15→09:33)
[2017-12-24 06:08] LABS: Basophils % 0.1 % (0.0-0.8); Eosinophils % 0.3 % (0.00-10.9); Hematocrit 27.3 VOL% (35.7-47.0); Hemoglobin 9.1 GM/DL (12.0-16.0); Immature Granulocytes % 1.1 %; Immature Granulocytes Absolute 0.11 #; Lymphocytes # 2.8 10*3/uL (1.4-4.0); Lymphocytes % 29.4 % (21.3-54.2); Mean Corpuscular HGB Conc 33.3 GM/DL (32-36); Mean Corpuscular Hemoglobin 28 PG (27-34); Mean Corpuscular Volume 84.5 FL (87-102); Mean Platelet Volume 9.1 FL (9.6-12.0); Monocytes # 0.8 10*3/uL (0.11-0.8); Monocytes % 8.4 % (1.7-12.7); NRBC # 0.02 10*3/uL; Neutrophils # 5.8 10*3/uL (1.4-7.4); Neutrophils % 60.7 % (38.7-73.9); Platelet Count 447 T/CUMM (130-400); Red Blood Count 3.23 MC/CUMM (3.8-5.5); Red Cell Distribution Width 16.1 % (9.3-17.3); White Blood Count 9.6 T/CUMM (4-12)
[2017-12-24 06:36] LABS: Prealbumin 15.2 MG/DL (20-40)
[2017-12-24 06:42] LABS: Osmolality,Calculated 288.6 MOS/KG (273-304)
[2017-12-24] MEDS: ENOXAPARIN 60 MG/0.6 ML SYRINGE SUBCUT SCH ×2 (08:11→21:20)
[2017-12-24] MEDS: methylPREDNISolone SOD SUC 40 MG/1 ML VIAL IV SCH ×2 (08:12→21:22)
[2017-12-24] MEDS: SODIUM CHLORIDE 0.9% 1,000 ML IV SCH ×2 (08:13→18:19)
[2017-12-24] MEDS: INSULIN REGULAR 100 UNIT/ML SUBCUT SCH ×4 (08:53→21:24)
[2017-12-24] MEDS: CHOLECALCIFEROL 5,000 UNIT TABLET PO SCH ×2 (09:30→09:44)
[2017-12-24] MEDS: LOSARTAN 50 MG TABLET PO SCH (09:30)
[2017-12-24] MEDS: GABAPENTIN 100 MG CAPSULE PO SCH ×4 (09:30→21:24)
[2017-12-24] MEDS: amLODIPine 5 MG TABLET PO SCH (09:31)
[2017-12-24] MEDS: PANTOPRAZOLE 40 MG VIAL IV SCH (09:31)
[2017-12-24] MEDS: CYANOCOBALAMIN 1000 MCG/1 ML VIAL IM SCH (09:33)
[2017-12-24] MEDS: MULTIVITAMIN LIQUID (CENTRUM) 60 ML BOTTLE PO SCH (09:43)
[2017-12-24] MEDS ORDERED: POTASSIUM CHLORIDE 20 MEQ TABLET PO ONE (10:00)
[2017-12-24] MEDS ORDERED: FLUCONAZOLE INJ 200 MG in PREMIX 1 EACH IV SCH (11:30)
[2017-12-24] MEDS: LEVOFLOXACIN INJ 500 MG in PREMIX 1 EACH IV SCH (11:43)
[2017-12-24] MEDS: POTASSIUM CHLORIDE 20 MEQ/15 ML UDCUP PER TUBE PRN (14:26)
[2017-12-24] MEDS ORDERED: SODIUM CHLOR 0.9% KCL 20 MEQ 20 MEQ/1,000 ML BAG IV SCH (15:30)
[2017-12-24] MEDS: hydrALAZINE 20 MG/1 ML VIAL IV PRN (16:56)
[2017-12-24] MEDS: POTASSIUM CHLORIDE INJ 10 MEQ in SODIUM CHLORIDE 0.9% 1,000 ML IV SCH (18:13)
[2017-12-24] MEDS: INSULIN GLARGINE 100 UNIT/ML SUBCUT SCH (21:20)
[2017-12-24] MEDS: MIRTAZAPINE 15 MG TABLET PO SCH (21:23)
[2017-12-24] MEDS: POTASSIUM CHLORIDE 10 MEQ TABLET PO SCH (21:23)
[2017-12-25] MEDS: ALBUTEROL/IPRATROPIUM 3 ML NEB RESP TX SCH ×4 (00:37→18:40)
[2017-12-25 04:49] LABS: Hematocrit 28.4 VOL% (35.7-47.0); Hemoglobin 9.9 GM/DL (12.0-16.0); Immature Granulocytes % 0.8 %; Immature Granulocytes Absolute 0.07 #; Lymphocytes # 1.4 10*3/uL (1.4-4.0); Lymphocytes % 15.9 % (21.3-54.2); Mean Corpuscular HGB Conc 34.9 GM/DL (32-36); Mean Corpuscular Hemoglobin 29 PG (27-34); Mean Corpuscular Volume 82.1 FL (87-102); Monocytes # 0.4 10*3/uL (0.11-0.8); Monocytes % 4.8 % (1.7-12.7); Neutrophils # 6.8 10*3/uL (1.4-7.4); Neutrophils % 78.5 % (38.7-73.9); Platelet Count 447 T/CUMM (130-400); Red Blood Count 3.46 MC/CUMM (3.8-5.5); Red Cell Distribution Width 16.1 % (9.3-17.3); White Blood Count 8.6 T/CUMM (4-12)
[2017-12-25 05:15] LABS: Calcium 7.7 MG/DL (8.5-10.1); Osmolality,Calculated 289.8 MOS/KG (273-304); Potassium 3.1 MMOL/L (3.5-5.1)
[2017-12-25] MEDS: POTASSIUM CHLORIDE INJ 10 MEQ in SODIUM CHLORIDE 0.9% 1,000 ML IV SCH (09:40)
[2017-12-25] MEDS: methylPREDNISolone SOD SUC 40 MG/1 ML VIAL IV SCH ×2 (09:41→21:33)
[2017-12-25] MEDS: CYANOCOBALAMIN 1000 MCG/1 ML VIAL IM SCH (09:41)
[2017-12-25] MEDS: CHOLECALCIFEROL 5,000 UNIT TABLET PO SCH (09:42)
[2017-12-25] MEDS: GABAPENTIN 100 MG CAPSULE PO SCH ×2 (09:42→21:33)
[2017-12-25] MEDS: amLODIPine 5 MG TABLET PO SCH (09:42)
[2017-12-25] MEDS: LOSARTAN 50 MG TABLET PO SCH (09:42)
[2017-12-25] MEDS: INSULIN REGULAR 100 UNIT/ML SUBCUT SCH ×4 (09:42→21:00)
[2017-12-25] MEDS: POTASSIUM CHLORIDE 10 MEQ TABLET PO SCH ×2 (09:42→21:32)
[2017-12-25] MEDS: ENOXAPARIN 60 MG/0.6 ML SYRINGE SUBCUT SCH ×2 (09:42→21:34)
[2017-12-25] MEDS: PANTOPRAZOLE 40 MG VIAL IV SCH (09:42)
[2017-12-25] MEDS: MULTIVITAMIN LIQUID (CENTRUM) 60 ML BOTTLE PO SCH (09:42)
[2017-12-25] MEDS: LEVOFLOXACIN INJ 500 MG in PREMIX 1 EACH IV SCH (10:06)
[2017-12-25] MEDS: INSULIN GLARGINE 100 UNIT/ML SUBCUT SCH (21:00)
[2017-12-25] MEDS: MIRTAZAPINE 15 MG TABLET PO SCH (21:33)
[2017-12-26] MEDS: ALBUTEROL/IPRATROPIUM 3 ML NEB RESP TX SCH ×4 (00:33→19:20)
[2017-12-26] MEDS: POTASSIUM CHLORIDE INJ 10 MEQ in SODIUM CHLORIDE 0.9% 1,000 ML IV SCH ×2 (01:40→14:34)
[2017-12-26 05:38] LABS: Calcium 7.9 MG/DL (8.5-10.1); Osmolality,Calculated 294.6 MOS/KG (273-304)
[2017-12-26] MEDS: methylPREDNISolone SOD SUC 40 MG/1 ML VIAL IV SCH ×2 (10:17→20:58)
[2017-12-26] MEDS: PANTOPRAZOLE 40 MG VIAL IV SCH (10:18)
[2017-12-26] MEDS: MAGNESIUM SULF RIDER 2 GM in PREMIX 1 EACH IV PRN (10:20)
[2017-12-26] MEDS: INSULIN REGULAR 100 UNIT/ML SUBCUT SCH ×4 (10:36→20:57)
[2017-12-26] MEDS: POTASSIUM CHLORIDE 10 MEQ TABLET PO SCH ×2 (11:06→20:57)
[2017-12-26] MEDS: GABAPENTIN 100 MG CAPSULE PO SCH ×2 (11:06→20:57)
[2017-12-26] MEDS: LEVOFLOXACIN 750 MG TABLET PO SCH (11:06)
[2017-12-26] MEDS: LOSARTAN 50 MG TABLET PO SCH (11:06)
[2017-12-26] MEDS: CHOLECALCIFEROL 5,000 UNIT TABLET PO SCH (11:06)
[2017-12-26] MEDS: amLODIPine 5 MG TABLET PO SCH (11:06)
[2017-12-26] MEDS: MULTIVITAMIN LIQUID (CENTRUM) 60 ML BOTTLE PO SCH (11:10)
[2017-12-26] MEDS: CYANOCOBALAMIN 1000 MCG/1 ML VIAL IM SCH (11:10)
[2017-12-26] MEDS: ENOXAPARIN 60 MG/0.6 ML SYRINGE SUBCUT SCH (11:13)
[2017-12-26] MEDS: MIRTAZAPINE 15 MG TABLET PO SCH (20:57)
[2017-12-26] MEDS: INSULIN GLARGINE 100 UNIT/ML SUBCUT SCH (21:14)
[2017-12-27] MEDS: ALBUTEROL/IPRATROPIUM 3 ML NEB RESP TX SCH ×4 (00:34→18:59)
[2017-12-27 05:04] LABS: Eosinophils % 0.2 % (0.00-10.9); Hematocrit 27.9 VOL% (35.7-47.0); Immature Granulocytes % 0.8 %; Immature Granulocytes Absolute 0.07 #; Lymphocytes # 1.9 10*3/uL (1.4-4.0); Lymphocytes % 21.8 % (21.3-54.2); Mean Corpuscular HGB Conc 32.3 GM/DL (32-36); Mean Corpuscular Hemoglobin 28 PG (27-34); Mean Corpuscular Volume 87.2 FL (87-102); Mean Platelet Volume 8.7 FL (9.6-12.0); Monocytes # 0.8 10*3/uL (0.11-0.8); Monocytes % 9.8 % (1.7-12.7); Neutrophils # 5.7 10*3/uL (1.4-7.4); Neutrophils % 67.4 % (38.7-73.9); Platelet Count 421 T/CUMM (130-400); Red Cell Distribution Width 16.3 % (9.3-17.3); White Blood Count 8.5 T/CUMM (4-12)
[2017-12-27 05:40] LABS: Osmolality,Calculated 291.4 MOS/KG (273-304); Potassium 3.2 MMOL/L (3.5-5.1)
[2017-12-27] MEDS: LEVOFLOXACIN 750 MG TABLET PO SCH (09:06)
[2017-12-27] MEDS: LOSARTAN 50 MG TABLET PO SCH (09:06)
[2017-12-27] MEDS: amLODIPine 5 MG TABLET PO SCH (09:06)
[2017-12-27] MEDS: CHOLECALCIFEROL 5,000 UNIT TABLET PO SCH (09:06)
[2017-12-27] MEDS: GABAPENTIN 100 MG CAPSULE PO SCH ×2 (09:06→20:51)
[2017-12-27] MEDS: MULTIVITAMIN LIQUID (CENTRUM) 60 ML BOTTLE PO SCH (09:07)
[2017-12-27] MEDS: POTASSIUM CHLORIDE 10 MEQ TABLET PO SCH ×2 (09:07→20:51)
[2017-12-27] MEDS: INSULIN REGULAR 100 UNIT/ML SUBCUT SCH ×4 (09:08→20:51)
[2017-12-27] MEDS: POTASSIUM CHLORIDE INJ 10 MEQ in SODIUM CHLORIDE 0.9% 1,000 ML IV SCH ×2 (09:08→23:30)
[2017-12-27] MEDS: methylPREDNISolone SOD SUC 40 MG/1 ML VIAL IV SCH (09:12)
[2017-12-27] MEDS: PANTOPRAZOLE 40 MG VIAL IV SCH (09:15)
[2017-12-27] MEDS: CYANOCOBALAMIN 1000 MCG/1 ML VIAL IM SCH (09:16)
[2017-12-27] MEDS ORDERED: ZINC OXIDE PASTE 113 GM TUBE TOP PRN (09:40)
[2017-12-27] MEDS ORDERED: INSULIN GLARGINE 100 UNIT/ML SUBCUT SCH (10:38)
[2017-12-27] MEDS: MIRTAZAPINE 15 MG TABLET PO SCH (20:50)
[2017-12-27] MEDS: INSULIN GLARGINE 100 UNIT/ML SUBCUT SCH (20:51)
[2017-12-28] MEDS: ALBUTEROL/IPRATROPIUM 3 ML NEB RESP TX SCH ×2 (00:02→07:15)
[2017-12-28 06:17] LABS: Basophils % 0.1 % (0.0-0.8); Eosinophils # 0.2 10*3/uL (0.0-0.87); Eosinophils % 2.5 % (0.00-10.9); Hematocrit 33.4 VOL% (35.7-47.0); Hemoglobin 10.9 GM/DL (12.0-16.0); Immature Granulocytes % 0.5 %; Immature Granulocytes Absolute 0.05 #; Lymphocytes # 2.9 10*3/uL (1.4-4.0); Lymphocytes % 29.9 % (21.3-54.2); Mean Corpuscular HGB Conc 32.6 GM/DL (32-36); Mean Corpuscular Hemoglobin 28 PG (27-34); Mean Corpuscular Volume 86.3 FL (87-102); Mean Platelet Volume 8.9 FL (9.6-12.0); Monocytes # 0.8 10*3/uL (0.11-0.8); Monocytes % 8.1 % (1.7-12.7); Neutrophils # 5.7 10*3/uL (1.4-7.4); Neutrophils % 58.9 % (38.7-73.9); Platelet Count 494 T/CUMM (130-400); Red Blood Count 3.87 MC/CUMM (3.8-5.5); White Blood Count 9.6 T/CUMM (4-12)
[2017-12-28 06:42] LABS: Calcium 8.6 MG/DL (8.5-10.1); Osmolality,Calculated 292.6 MOS/KG (273-304); Potassium 3.5 MMOL/L (3.5-5.1)
[2017-12-28 07:44] VITALS: BP 156/98
[2017-12-28] MEDS: INSULIN REGULAR 100 UNIT/ML SUBCUT SCH (08:46)
[2017-12-28] MEDS: LOSARTAN 50 MG TABLET PO SCH (08:59)
[2017-12-28] MEDS: POTASSIUM CHLORIDE 10 MEQ TABLET PO SCH (09:00)
[2017-12-28] MEDS: PANTOPRAZOLE 40 MG VIAL IV SCH (09:00)
[2017-12-28] MEDS: CHOLECALCIFEROL 5,000 UNIT TABLET PO SCH (09:00)
[2017-12-28] MEDS: LEVOFLOXACIN 750 MG TABLET PO SCH (09:00)
[2017-12-28] MEDS: GABAPENTIN 100 MG CAPSULE PO SCH (09:00)
[2017-12-28] MEDS ORDERED: methylPREDNISolone SOD SUC 40 MG/1 ML VIAL IV SCH (09:00)
[2017-12-28] MEDS: amLODIPine 5 MG TABLET PO SCH (09:00)
[2017-12-28] MEDS: MULTIVITAMIN LIQUID (CENTRUM) 60 ML BOTTLE PO SCH (09:01)
[2017-12-28] MEDS: CYANOCOBALAMIN 1000 MCG/1 ML VIAL IM SCH (09:19)
== END 2017-12-28 09:57 | DRG 853 ==
LOC: EDUNIT# → N.ED 10:39 → N.EDINP 12:14 → SUPCPDRO 12:14 → SUATTDRO 12:14 → N.CC 13:58 → N.2E 12-22 10:10
PROVIDERS: ATTEND Internal Medicine

== ENCOUNTER 2018-04-18 16:53 | Inpatient (IN) ==
[2018-04-18 18:45] LABS: Basophils # 0.1 10*3/uL (0.0-0.2); Eosinophils # 0.4 10*3/uL (0.0-0.87); Eosinophils % 5.6 % (0.00-10.9); Hematocrit 47.8 VOL% (35.7-47.0); Hemoglobin 15.6 GM/DL (12.0-16.0); Immature Granulocytes % 0.1 %; Immature Granulocytes Absolute 0.01 #; Lymphocytes % 37.9 % (21.3-54.2); Mean Corpuscular HGB Conc 32.6 GM/DL (32-36); Mean Corpuscular Hemoglobin 29 PG (27-34); Mean Corpuscular Volume 90.2 FL (87-102); Mean Platelet Volume 8.6 FL (9.6-12.0); Monocytes # 0.5 10*3/uL (0.11-0.8); Monocytes % 5.8 % (1.7-12.7); Neutrophils # 3.9 10*3/uL (1.4-7.4); Neutrophils % 49.6 % (38.7-73.9); Platelet Count 282 T/CUMM (130-400); Red Cell Distribution Width 13.6 % (9.3-17.3); White Blood Count 7.9 T/CUMM (4-12)
[2018-04-18 18:54] LABS: Amorphous Crystals,Urine Occasional /HPF (Few); Apearance,Urine CLOUDY (Clear); Bilirubin,Urine Negative (Negative); Blood, Urine Small mg/dL (Negative); Glucose,Urine (UA) Negative (Negative); Ketones,Urine 5 mg/dL (Negative); Mucus,Urine Few /LPF (Occasional); Nitrite,Urine Positive (Negative); Protein,Urine 100 MG/DL; RBC,Urine 35 /HPF (0-4); Urine Color Yellow (Yellow); Urine Specific Gravity 1.017 (1.001-1.035); Urine Urobilinogen < 2.0 EU/DL (0.2-1.0); WBC,Urine 2184 /HPF (0-6)
[2018-04-18 19:05] LABS: Alanine Aminotransferase 9 U/L (13-56); Albumin 3.2 G/DL (3.4-5.0); Alkaline Phosphatase 59 U/L (45-117); Aspartate Amino Transferase 11 U/L (0-37); Bilirubin,Total < 0.39 MG/DL (0.2-1.0); Blood Urea Nitrogen 13 MG/DL (7-18); Glucose 94 MG/DL (74-106); Osmolality,Calculated 285.8 MOS/KG (273-304); Potassium 4.3 MMOL/L (3.5-5.1); Sodium 144 MMOL/L (136-145); Total Protein 8.1 G/DL (6.4-8.3)
[2018-04-19 06:37] LABS: Calcium 9.3 MG/DL (8.5-10.1); Osmolality,Calculated 287.7 MOS/KG (273-304); Potassium 3.7 MMOL/L (3.5-5.1)
[2018-04-19 07:21] LABS: Basophils # 0.1 10*3/uL (0.0-0.2); Eosinophils # 0.5 10*3/uL (0.0-0.87); Eosinophils % 4.9 % (0.00-10.9); Hematocrit 34.1 VOL% (35.7-47.0); Immature Granulocytes % 0.2 %; Immature Granulocytes Absolute 0.02 #; Lymphocytes # 4.1 10*3/uL (1.4-4.0); Lymphocytes % 37.5 % (21.3-54.2); Mean Corpuscular HGB Conc 32.6 GM/DL (32-36); Mean Corpuscular Hemoglobin 29 PG (27-34); Mean Corpuscular Volume 90.5 FL (87-102); Mean Platelet Volume 8.9 FL (9.6-12.0); Monocytes # 0.8 10*3/uL (0.11-0.8); Neutrophils # 5.4 10*3/uL (1.4-7.4); Neutrophils % 49.4 % (38.7-73.9); Platelet Count 370 T/CUMM (130-400); Red Blood Count 3.77 MC/CUMM (3.8-5.5); Red Cell Distribution Width 13.2 % (9.3-17.3); White Blood Count 10.9 T/CUMM (4-12)
[2018-04-19 07:25] LABS: Hemoglobin 11.1 GM/DL (12.0-16.0)
[2018-04-20 04:00] LABS: Calcium 8.9 MG/DL (8.5-10.1); Osmolality,Calculated 290.4 MOS/KG (273-304); Potassium 3.5 MMOL/L (3.5-5.1)
[2018-04-22 09:46] LABS: Basophils # 0.1 10*3/uL (0.0-0.2); Basophils % 0.8 % (0.0-0.8); Eosinophils # 0.4 10*3/uL (0.0-0.87); Eosinophils % 4.7 % (0.00-10.9); Hematocrit 29.4 VOL% (35.7-47.0); Immature Granulocytes % 0.2 %; Immature Granulocytes Absolute 0.02 #; Lymphocytes # 3.3 10*3/uL (1.4-4.0); Lymphocytes % 38.4 % (21.3-54.2); Mean Corpuscular Hemoglobin 29 PG (27-34); Mean Corpuscular Volume 86.2 FL (87-102); Mean Platelet Volume 9.1 FL (9.6-12.0); Monocytes # 0.6 10*3/uL (0.11-0.8); Neutrophils # 4.2 10*3/uL (1.4-7.4); Neutrophils % 48.9 % (38.7-73.9); Platelet Count 365 T/CUMM (130-400); Red Blood Count 3.41 MC/CUMM (3.8-5.5); Red Cell Distribution Width 13.3 % (9.3-17.3); White Blood Count 8.5 T/CUMM (4-12)
[2018-04-23 06:28] LABS: Basophils % 0.3 % (0.0-0.8); Eosinophils # 0.5 10*3/uL (0.0-0.87); Eosinophils % 5.7 % (0.00-10.9); Hematocrit 28.2 VOL% (35.7-47.0); Hemoglobin 9.8 GM/DL (12.0-16.0); Immature Granulocytes % 0.3 %; Immature Granulocytes Absolute 0.02 #; Lymphocytes % 38.4 % (21.3-54.2); Mean Corpuscular HGB Conc 34.8 GM/DL (32-36); Mean Corpuscular Hemoglobin 29 PG (27-34); Mean Corpuscular Volume 84.7 FL (87-102); Monocytes # 0.6 10*3/uL (0.11-0.8); Monocytes % 7.2 % (1.7-12.7); Neutrophils # 3.8 10*3/uL (1.4-7.4); Neutrophils % 48.1 % (38.7-73.9); Platelet Count 349 T/CUMM (130-400); Red Blood Count 3.33 MC/CUMM (3.8-5.5); Red Cell Distribution Width 13.3 % (9.3-17.3); White Blood Count 7.9 T/CUMM (4-12)
[2018-04-23 06:35] LABS: INR 1.1; PT Patient Result 11.2 SECS
[2018-04-23 06:54] LABS: Calcium 8.2 MG/DL (8.5-10.1); Osmolality,Calculated 290.4 MOS/KG (273-304); Potassium 2.9 MMOL/L (3.5-5.1)
[2018-04-24 06:23] LABS: Calcium 8.3 MG/DL (8.5-10.1); Osmolality,Calculated 287.6 MOS/KG (273-304)
[2018-04-24 17:39] LABS: Alanine Aminotransferase 10 U/L (13-56); Albumin 2.1 G/DL (3.4-5.0); Alkaline Phosphatase 54 U/L (45-117); Aspartate Amino Transferase 13 U/L (0-37); Bilirubin,Total < 0.39 MG/DL (0.2-1.0); Blood Urea Nitrogen 4 MG/DL (7-18); Calcium 8.7 MG/DL (8.5-10.1); Glucose 104 MG/DL (74-106); Potassium 3.8 MMOL/L (3.5-5.1); Sodium 143 MMOL/L (136-145); Total Protein 6.4 G/DL (6.4-8.3)
[2018-04-25 06:53] LABS: Basophils % 0.4 % (0.0-0.8); Eosinophils # 0.2 10*3/uL (0.0-0.87); Hematocrit 28.8 VOL% (35.7-47.0); Immature Granulocytes % 0.3 %; Immature Granulocytes Absolute 0.03 #; Lymphocytes # 3.5 10*3/uL (1.4-4.0); Lymphocytes % 35.7 % (21.3-54.2); Mean Corpuscular HGB Conc 34.7 GM/DL (32-36); Mean Corpuscular Hemoglobin 29 PG (27-34); Mean Corpuscular Volume 83.7 FL (87-102); Mean Platelet Volume 9.9 FL (9.6-12.0); Monocytes # 0.6 10*3/uL (0.11-0.8); Monocytes % 6.5 % (1.7-12.7); Neutrophils # 5.4 10*3/uL (1.4-7.4); Neutrophils % 55.1 % (38.7-73.9); Platelet Count 296 T/CUMM (130-400); Red Blood Count 3.44 MC/CUMM (3.8-5.5); Red Cell Distribution Width 13.3 % (9.3-17.3); White Blood Count 9.8 T/CUMM (4-12)
[2018-04-25 07:12] LABS: Calcium 8.8 MG/DL (8.5-10.1); Osmolality,Calculated 277.3 MOS/KG (273-304); Potassium 3.7 MMOL/L (3.5-5.1); Prealbumin 10.5 MG/DL (20-40)
[2018-04-25 07:19] LABS: Alanine Aminotransferase 13 U/L (13-56); Albumin 2.3 G/DL (3.4-5.0); Alkaline Phosphatase 53 U/L (45-117); Aspartate Amino Transferase 9 U/L (0-37); Bilirubin,Total < 0.39 MG/DL (0.2-1.0); Blood Urea Nitrogen 4 MG/DL (7-18); Calcium 8.4 MG/DL (8.5-10.1); Glucose 99 MG/DL (74-106); Osmolality,Calculated 277.3 MOS/KG (273-304); Potassium 3.7 MMOL/L (3.5-5.1); Sodium 141 MMOL/L (136-145); Total Protein 6.4 G/DL (6.4-8.3)
[2018-04-25 07:23] LABS: Hypochromasia 1+; Ovalocytes Slight; Platelet Estimate Adequate
[2018-04-25 17:26] LABS: Albumin 2.3 G/DL (3.4-5.0); Bilirubin,Total 0.5 MG/DL (0.2-1.0); Calcium 8.8 MG/DL (8.5-10.1); Osmolality,Calculated 278.5 MOS/KG (273-304); Potassium 3.9 MMOL/L (3.5-5.1); Total Protein 6.6 G/DL (6.4-8.3)
[2018-04-26 20:36] VITALS: BP 120/61
== END 2018-04-26 15:45 | DRG 690 ==
LOC: EDBD → EDUNIT# → N.ED 16:53 → N.EDINP 21:02 → N.5E 21:50
PROVIDERS: ADMIT Internal Medicine; ATTEND Internal Medicine
PROC: EGDWPEG (ICD-10-PCS; 2018-04-23 09:05)

== ENCOUNTER 2020-05-14 04:45 | Inpatient (IN) ==
[2020-05-14] MEDS ORDERED: SODIUM CHLORIDE 0.9% 1,000 ML IV STA (05:25)
[2020-05-14 06:20] LABS: Basophils % 0.3 % (0.0-0.8); Eosinophils # 0.1 10*3/uL (0.0-0.87); Eosinophils % 0.7 % (0.00-10.9); Hematocrit 29.1 VOL% (35.7-47.0); Hemoglobin 8.4 GM/DL (12.0-16.0); Immature Granulocytes % 0.7 %; Immature Granulocytes Absolute 0.08 #; Lymphocytes # 1.7 10*3/uL (1.4-4.0); Lymphocytes % 13.9 % (21.3-54.2); Mean Corpuscular HGB Conc 28.9 GM/DL (32-36); Mean Corpuscular Volume 81.1 FL (87-102); Monocytes % 8.7 % (1.7-12.7); NRBC # 0.06 10*3/uL; Neutrophils % 75.7 % (38.7-73.9); Platelet Count 421 T/CUMM (130-400); Red Blood Count 3.59 MC/CUMM (3.8-5.5); Red Cell Distribution Width 17.7 % (9.3-17.3)
[2020-05-14 06:36] LABS: PT Patient Result 11.1 SECS (9.8-11.9)
[2020-05-14 06:55] LABS: Alanine Aminotransferase 33 U/L (13-56); Albumin 1.6 G/DL (3.4-5.0); Alkaline Phosphatase 84 U/L (45-117); Aspartate Amino Transferase 29 U/L (0-37); Bilirubin,Total < 0.39 MG/DL (0.2-1.0); Blood Urea Nitrogen 55 MG/DL (7-18); Calcium 8.7 MG/DL (8.5-10.1); Glucose 128 MG/DL (74-106); Osmolality,Calculated 299.1 MOS/KG (273-304); Total Protein 8.1 G/DL (6.4-8.3)
[2020-05-14 06:56] LABS: Estimated Glom Filtration Rate 0 ML/MIN
[2020-05-14 07:15] LABS: Apearance,Urine CLOUDY (Clear); Bacteria,Urine Many /HPF (Few); Bilirubin,Urine Negative (Negative); Blood, Urine Small mg/dL (Negative); Glucose,Urine (UA) Negative (Negative); Hyaline Casts,Urine 2 /LPF (0-3); Ketones,Urine Negative (Negative); Mucus,Urine Occasional /LPF (Occasional); Nitrite,Urine Negative (Negative); Protein,Urine 100 MG/DL; RBC,Urine 48 /HPF (0-4); Urine Color Amber (Yellow); Urine Specific Gravity 1.016 (1.001-1.035); WBC,Urine 199 /HPF (0-6)
[2020-05-14 07:40] LABS: Helmet Cells Slight; Hypochromasia 3+; Platelet Estimate Normal; Polychromasia Slight; Spherocytes Few
[2020-05-14] MEDS ORDERED: LEVOFLOXACIN INJ 500 MG in PREMIX 1 EACH IV STA (08:03)
[2020-05-14] MEDS ORDERED: LINEZOLID INJ 600 MG in PREMIX 1 EACH IV SCH (08:30)
[2020-05-14] MEDS ORDERED: ERTAPENEM 1,000 MG in SODIUM CHLORIDE 0.9% 100 ML IV ONE (08:34)
[2020-05-14] MEDS ORDERED: DEXTROSE 50% 25 GM/50 ML VIAL IV PRN (10:05)
[2020-05-14] MEDS ORDERED: GLUCAGON 1 MG VIAL IM PRN (10:05)
[2020-05-14] MEDS ORDERED: ONDANSETRON 4 MG/2 ML VIAL IV PRN (10:05)
[2020-05-14] MEDS: INSULIN LISPRO 100 UNIT/ML SUBCUT SCH ×3 (11:18→21:02)
[2020-05-14] MEDS: SODIUM CHLORIDE 0.9% 1,000 ML IV SCH (14:35)
[2020-05-14 14:45] LABS: CKMB % 2.3 %; Troponin I 0.127 NG/ML (0.00-0.045)
[2020-05-14] MEDS: ACETAMINOPHEN 325 MG TABLET PEG PRN (21:00)
[2020-05-14] MEDS: GABAPENTIN 100 MG CAPSULE PEG SCH (21:00)
[2020-05-15 02:15] LABS: ABG Base Excess -9.5 MMOL/L (-2.5-2.5); ABG HCO3 16.7 MMOL/L (20-26); ABG Oxygen Saturation 96.9 % (95-100); ABG PH 7.347 (7.35-7.45); ABG PO2 93.7 MM HG (80-95); ABG TCO2 14.7 MMOL/L (23-27); Allen Test Positive; Pt O2 Delivery Device Ventilator
[2020-05-15] MEDS ORDERED: SODIUM CHLORIDE 0.9% 1,000 ML IV ONE ×2 (02:28→04:13)
[2020-05-15] MEDS: PHENYLEPHRINE DRIP 40 MG/250 ML PREMIX IV PRN ×2 (02:53→07:11)
[2020-05-15 03:43] LABS: Basophils # 0.1 10*3/uL (0.0-0.2); Basophils % 0.3 % (0.0-0.8); Eosinophils % 0.2 % (0.00-10.9); Immature Granulocytes % 4.9 %; Immature Granulocytes Absolute 0.93 #; Lymphocytes # 2.4 10*3/uL (1.4-4.0); Lymphocytes % 12.7 % (21.3-54.2); Mean Corpuscular HGB Conc 26.7 GM/DL (32-36); Mean Corpuscular Volume 87.3 FL (87-102); Mean Platelet Volume 9.2 FL (9.6-12.0); Monocytes % 5.9 % (1.7-12.7); NRBC # 0.12 10*3/uL; Platelet Count 542 T/CUMM (130-400); Red Blood Count 1.97 MC/CUMM (3.8-5.5); Red Cell Distribution Width 18.1 % (9.3-17.3); White Blood Count 19.1 T/CUMM (4-12)
[2020-05-15 03:48] LABS: Hematocrit 17.2 VOL% (35.7-47.0); Hemoglobin 4.6 GM/DL (12.0-16.0)
[2020-05-15 04:07] LABS: Calcium 8.4 MG/DL (8.5-10.1); Osmolality,Calculated 302.7 MOS/KG (273-304); Risk Ratio 3.32; VLDL CHOLESTEROL 17.2 MG/DL
[2020-05-15] MEDS ORDERED: LEVOFLOXACIN INJ 500 MG in PREMIX 1 EACH IV SCH (04:30)
[2020-05-15] MEDS ORDERED: CIPROFLOXACIN INJ 400 MG in PREMIX 1 EACH IV SCH (04:30)
[2020-05-15 04:52] LABS: ABG Base Excess -7.1 MMOL/L (-2.5-2.5); ABG HCO3 18.6 MMOL/L (20-26); ABG Oxygen Saturation 99.4 % (95-100); ABG PCO2 28.8 MM HG (35-48); ABG PH 7.379 (7.35-7.45); ABG TCO2 15.6 MMOL/L (23-27); Allen Test Positive; Pt O2 Delivery Device Ventilator
[2020-05-15 05:39] LABS: Hematocrit 20.3 VOL% (35.7-47.0)
[2020-05-15 05:41] LABS: Hemoglobin 5.6 GM/DL (12.0-16.0)
[2020-05-15] MEDS ORDERED: SODIUM CHLORIDE 0.9% 1,000 ML IV PRN (05:43)
[2020-05-15 05:47] LABS: INR 1.2; PT Patient Result 12.3 SECS (9.8-11.9); Partial Thromboplastin Time 28.5 SECS (23.9-33.8)
[2020-05-15 06:51] LABS: Anisocytosis 1+; Hypochromasia 2+; Lymphocytes 10 % (20-55); Macrocytosis 1+; Metamyelocytes 1 %; Nucleated Red Blood Cells 1 (0-5); Platelet Estimate Increased; Segmented Neutrophils 83 % (50-85); Total Cells Counted 100
[2020-05-15] MEDS: SODIUM CHLORIDE 0.9% 1,000 ML IV SCH (07:11)
[2020-05-15] MEDS ORDERED: POTASSIUM CHLORIDE 20 MEQ PACK PEG SCH (08:00)
[2020-05-15] MEDS ORDERED: amLODIPine 5 MG TABLET PEG SCH (08:00)
[2020-05-15] MEDS: INSULIN LISPRO 100 UNIT/ML SUBCUT SCH ×4 (08:18→21:30)
[2020-05-15] MEDS: ASPIRIN CHEW 81 MG TABLET PO SCH (08:18)
[2020-05-15] MEDS: MULTIVITAMIN LIQUID (CENTRUM) 60 ML BOTTLE PO SCH (08:18)
[2020-05-15] MEDS: MAGNESIUM OXIDE 400 MG TABLET PEG SCH (08:19)
[2020-05-15] MEDS: CHOLECALCIFEROL 1,000 UNIT TABLET PEG SCH (08:19)
[2020-05-15] MEDS: ASCORBIC ACID 500 MG TABLET PEG SCH (08:19)
[2020-05-15] MEDS ORDERED: MEROPENEM 500 MG in SODIUM CHLORIDE 0.9% 100 ML IV SCH (08:30)
[2020-05-15] MEDS ORDERED: MEROPENEM 1,000 MG in SODIUM CHLORIDE 0.9% 100 ML IV SCH (09:00)
[2020-05-15] MEDS: DEXMEDETOMIDINE 200 MCG in SODIUM CHLORIDE 0.9% 48 ML IV PRN ×2 (09:19→19:36)
[2020-05-15] MEDS: PANTOPRAZOLE 40 MG VIAL IV SCH (09:19)
[2020-05-15] MEDS: MEROPENEM 500 MG in SODIUM CHLORIDE 0.9% 100 ML IV SCH ×2 (09:19→16:44)
[2020-05-15 09:39] LABS: % Iron Saturation 8.3 % (18-50); Ferritin 122.2 ng/ml (8-252)
[2020-05-15] MEDS ORDERED: VANCOMYCIN INJ 750 MG in SODIUM CHLORIDE 0.9% 250 ML IV SCH (10:00)
[2020-05-15 13:29] LABS: Hemoglobin 8.2 GM/DL (12.0-16.0)
[2020-05-15] MEDS: MORPHINE 4 MG/1 ML VIAL IV PRN (17:37)
[2020-05-15] MEDS: GABAPENTIN 100 MG CAPSULE PEG SCH (21:30)
[2020-05-16] MEDS: MEROPENEM 500 MG in SODIUM CHLORIDE 0.9% 100 ML IV SCH ×4 (01:50→20:51)
[2020-05-16] MEDS: PHENYLEPHRINE DRIP 40 MG/250 ML PREMIX IV PRN (02:08)
[2020-05-16 03:47] LABS: Basophils # 0.1 10*3/uL (0.0-0.2); Basophils % 0.4 % (0.0-0.8); Eosinophils # 0.1 10*3/uL (0.0-0.87); Eosinophils % 0.6 % (0.00-10.9); Hemoglobin 8.7 GM/DL (12.0-16.0); Immature Granulocytes % 0.7 %; Lymphocytes # 2.2 10*3/uL (1.4-4.0); Lymphocytes % 16.3 % (21.3-54.2); Mean Corpuscular HGB Conc 31.1 GM/DL (32-36); Mean Corpuscular Volume 85.6 FL (87-102); Mean Platelet Volume 9.1 FL (9.6-12.0); Monocytes % 6.5 % (1.7-12.7); NRBC # 0.11 10*3/uL; Neutrophils % 75.5 % (38.7-73.9); Platelet Count 400 T/CUMM (130-400); Red Blood Count 3.27 MC/CUMM (3.8-5.5); Red Cell Distribution Width 17.3 % (9.3-17.3); White Blood Count 13.5 T/CUMM (4-12)
[2020-05-16 04:06] LABS: Calcium 8.2 MG/DL (8.5-10.1); Osmolality,Calculated 306.9 MOS/KG (273-304)
[2020-05-16 05:03] LABS: ABG Base Excess -7.2 MMOL/L (-2.5-2.5); ABG HCO3 16.3 MMOL/L (20-26); ABG Oxygen Saturation 98.9 % (95-100); ABG PCO2 25.8 MM HG (35-48); ABG PH 7.419 (7.35-7.45); ABG PO2 174.3 MM HG (80-95); ABG TCO2 17.1 MMOL/L (23-27); Allen Test Positive; Pt O2 Delivery Device Ventilator
[2020-05-16] MEDS: DEXMEDETOMIDINE 200 MCG in SODIUM CHLORIDE 0.9% 48 ML IV PRN ×2 (06:42→17:09)
[2020-05-16] MEDS: MULTIVITAMIN LIQUID (CENTRUM) 60 ML BOTTLE PO SCH (08:10)
[2020-05-16] MEDS: ASPIRIN CHEW 81 MG TABLET PO SCH (08:10)
[2020-05-16] MEDS: MAGNESIUM OXIDE 400 MG TABLET PEG SCH (08:10)
[2020-05-16] MEDS: INSULIN LISPRO 100 UNIT/ML SUBCUT SCH ×4 (08:10→20:37)
[2020-05-16] MEDS: CHOLECALCIFEROL 1,000 UNIT TABLET PEG SCH (08:11)
[2020-05-16] MEDS: ASCORBIC ACID 500 MG TABLET PEG SCH (08:11)
[2020-05-16] MEDS: PANTOPRAZOLE 40 MG VIAL IV SCH (08:16)
[2020-05-16] MEDS ORDERED: MIDAZOLAM 2 MG/2 ML VIAL ONE (10:24)
[2020-05-16] MEDS ORDERED: SEVOFLURANE 1 UNIT/15 MINUTE INH ONE (10:24)
[2020-05-16] MEDS ORDERED: GLYCOPYRROLATE 0.4 MG/2 ML VIAL ONE (10:24)
[2020-05-16] MEDS ORDERED: PHENYLEPHRINE 1 MG/10 ML SYRINGE IV ONE (10:25)
[2020-05-16] MEDS ORDERED: ENOXAPARIN 40 MG/0.4 ML SYRINGE SUBCUT SCH (10:30)
[2020-05-16] MEDS: MORPHINE 4 MG/1 ML VIAL IV PRN ×2 (12:13→16:15)
[2020-05-16] MEDS: GABAPENTIN 100 MG CAPSULE PEG SCH (20:50)
[2020-05-16] MEDS: ENOXAPARIN 40 MG/0.4 ML SYRINGE SUBCUT SCH (20:50)
[2020-05-17 03:38] LABS: Basophils # 0.1 10*3/uL (0.0-0.2); Basophils % 0.3 % (0.0-0.8); Eosinophils # 0.1 10*3/uL (0.0-0.87); Eosinophils % 0.8 % (0.00-10.9); Hemoglobin 8.2 GM/DL (12.0-16.0); Immature Granulocytes % 0.9 %; Immature Granulocytes Absolute 0.14 #; Lymphocytes # 2.2 10*3/uL (1.4-4.0); Lymphocytes % 13.8 % (21.3-54.2); Mean Corpuscular HGB Conc 29.3 GM/DL (32-36); Mean Corpuscular Volume 89.7 FL (87-102); Mean Platelet Volume 8.9 FL (9.6-12.0); Monocytes % 4.8 % (1.7-12.7); NRBC # 0.04 10*3/uL; Neutrophils % 79.4 % (38.7-73.9); Platelet Count 382 T/CUMM (130-400); Red Blood Count 3.12 MC/CUMM (3.8-5.5); Red Cell Distribution Width 18.2 % (9.3-17.3); White Blood Count 15.9 T/CUMM (4-12)
[2020-05-17] MEDS: MEROPENEM 500 MG in SODIUM CHLORIDE 0.9% 100 ML IV SCH ×4 (03:44→20:28)
[2020-05-17 03:59] LABS: Calcium 8.6 MG/DL (8.5-10.1); Osmolality,Calculated 309.7 MOS/KG (273-304)
[2020-05-17 04:28] LABS: ABG Base Excess -8.1 MMOL/L (-2.5-2.5); ABG HCO3 16.1 MMOL/L (20-26); ABG Oxygen Saturation 98.6 % (95-100); ABG PCO2 28.5 MM HG (35-48); ABG PO2 164.1 MM HG (80-95); Allen Test Positive; Pt O2 Delivery Device Ventilator
[2020-05-17] MEDS: DEXMEDETOMIDINE 200 MCG in SODIUM CHLORIDE 0.9% 48 ML IV PRN (05:50)
[2020-05-17] MEDS: PANTOPRAZOLE 40 MG VIAL IV SCH (09:46)
[2020-05-17] MEDS: ASPIRIN CHEW 81 MG TABLET PO SCH (09:46)
[2020-05-17] MEDS: ASCORBIC ACID 500 MG TABLET PEG SCH (09:46)
[2020-05-17] MEDS: CHOLECALCIFEROL 1,000 UNIT TABLET PEG SCH (09:46)
[2020-05-17] MEDS: MAGNESIUM OXIDE 400 MG TABLET PEG SCH (09:46)
[2020-05-17] MEDS: INSULIN LISPRO 100 UNIT/ML SUBCUT SCH ×4 (09:47→20:20)
[2020-05-17] MEDS: MULTIVITAMIN LIQUID (CENTRUM) 60 ML BOTTLE PO SCH (09:47)
[2020-05-17 11:11] LABS: ABG Base Excess -7.1 MMOL/L (-2.5-2.5); ABG HCO3 18.6 MMOL/L (20-26); ABG Oxygen Saturation 98.8 % (95-100); ABG PCO2 28.2 MM HG (35-48); ABG PH 7.388 (7.35-7.45); ABG TCO2 15.9 MMOL/L (23-27); Pt O2 Delivery Device Ventilator
[2020-05-17] MEDS: GABAPENTIN 100 MG CAPSULE PEG SCH (20:28)
[2020-05-17] MEDS: ENOXAPARIN 40 MG/0.4 ML SYRINGE SUBCUT SCH (20:28)
[2020-05-18 03:55] LABS: ABG Base Excess -4.8 MMOL/L (-2.5-2.5); ABG HCO3 20.4 MMOL/L (20-26); ABG Oxygen Saturation 97.4 % (95-100); ABG PCO2 30.6 MM HG (35-48); ABG PH 7.406 (7.35-7.45); ABG PO2 87.1 MM HG (80-95); ABG TCO2 18.2 MMOL/L (23-27); Allen Test Positive
[2020-05-18] MEDS: MEROPENEM 500 MG in SODIUM CHLORIDE 0.9% 100 ML IV SCH ×4 (04:03→22:20)
[2020-05-18 04:40] LABS: Basophils % 0.2 % (0.0-0.8); Eosinophils # 0.2 10*3/uL (0.0-0.87); Eosinophils % 1.5 % (0.00-10.9); Hematocrit 26.3 VOL% (35.7-47.0); Hemoglobin 7.8 GM/DL (12.0-16.0); Immature Granulocytes % 0.9 %; Immature Granulocytes Absolute 0.12 #; Lymphocytes # 1.6 10*3/uL (1.4-4.0); Lymphocytes % 12.3 % (21.3-54.2); Mean Corpuscular HGB Conc 29.7 GM/DL (32-36); Mean Platelet Volume 9.3 FL (9.6-12.0); Monocytes % 6.3 % (1.7-12.7); NRBC # 0.03 10*3/uL; Neutrophils % 78.8 % (38.7-73.9); Platelet Count 371 T/CUMM (130-400); Red Blood Count 2.89 MC/CUMM (3.8-5.5); Red Cell Distribution Width 19.3 % (9.3-17.3); White Blood Count 12.9 T/CUMM (4-12)
[2020-05-18 05:27] LABS: Calcium 8.6 MG/DL (8.5-10.1); Osmolality,Calculated 315.6 MOS/KG (273-304); Prealbumin 4.3 MG/DL (20-40)
[2020-05-18] MEDS: INSULIN LISPRO 100 UNIT/ML SUBCUT SCH ×3 (05:55→18:28)
[2020-05-18] MEDS: MAGNESIUM OXIDE 400 MG TABLET PEG SCH (08:27)
[2020-05-18] MEDS: ASPIRIN CHEW 81 MG TABLET PO SCH (08:27)
[2020-05-18] MEDS: CHOLECALCIFEROL 1,000 UNIT TABLET PEG SCH (08:27)
[2020-05-18] MEDS: ASCORBIC ACID 500 MG TABLET PEG SCH (08:27)
[2020-05-18] MEDS: PANTOPRAZOLE 40 MG VIAL IV SCH (08:28)
[2020-05-18] MEDS: MULTIVITAMIN LIQUID (CENTRUM) 60 ML BOTTLE PO SCH (08:32)
[2020-05-18] MEDS: ACETAMINOPHEN 325 MG TABLET PEG PRN (17:22)
[2020-05-18] MEDS: ENOXAPARIN 40 MG/0.4 ML SYRINGE SUBCUT SCH (22:20)
[2020-05-18] MEDS: GABAPENTIN 100 MG CAPSULE PEG SCH (22:20)
[2020-05-19] MEDS: MEROPENEM 500 MG in SODIUM CHLORIDE 0.9% 100 ML IV SCH ×2 (03:28→09:28)
[2020-05-19] MEDS: INSULIN LISPRO 100 UNIT/ML SUBCUT SCH ×4 (03:34→18:32)
[2020-05-19 05:42] LABS: Basophils % 0.3 % (0.0-0.8); Eosinophils # 0.2 10*3/uL (0.0-0.87); Eosinophils % 1.8 % (0.00-10.9); Hematocrit 28.2 VOL% (35.7-47.0); Hemoglobin 8.2 GM/DL (12.0-16.0); Immature Granulocytes % 0.8 %; Immature Granulocytes Absolute 0.09 #; Lymphocytes # 1.6 10*3/uL (1.4-4.0); Lymphocytes % 13.9 % (21.3-54.2); Mean Corpuscular HGB Conc 29.1 GM/DL (32-36); Mean Corpuscular Volume 90.1 FL (87-102); Mean Platelet Volume 9.2 FL (9.6-12.0); Monocytes % 5.4 % (1.7-12.7); Neutrophils % 77.8 % (38.7-73.9); Platelet Count 391 T/CUMM (130-400); Red Blood Count 3.13 MC/CUMM (3.8-5.5); Red Cell Distribution Width 19.9 % (9.3-17.3); White Blood Count 11.6 T/CUMM (4-12)
[2020-05-19 06:17] LABS: Osmolality,Calculated 316.4 MOS/KG (273-304)
[2020-05-19] MEDS: MAGNESIUM OXIDE 400 MG TABLET PEG SCH (09:27)
[2020-05-19] MEDS: CHOLECALCIFEROL 1,000 UNIT TABLET PEG SCH (09:27)
[2020-05-19] MEDS: PANTOPRAZOLE 40 MG VIAL IV SCH (09:27)
[2020-05-19] MEDS: ASPIRIN CHEW 81 MG TABLET PO SCH (09:28)
[2020-05-19] MEDS: MULTIVITAMIN LIQUID (CENTRUM) 60 ML BOTTLE PO SCH (09:28)
[2020-05-19] MEDS: ASCORBIC ACID 500 MG TABLET PEG SCH (09:28)
[2020-05-19] MEDS: AZTREONAM 500 MG in SYRINGE 1 EACH IV SCH ×2 (11:55→20:21)
[2020-05-19] MEDS: SODIUM HYPOCHLORITE 0.25% IRRIG 473 ML BOTTLE TOP SCH (12:14)
[2020-05-19] MEDS: ACETAMINOPHEN 325 MG TABLET PEG PRN (16:01)
[2020-05-19] MEDS: ALBUTEROL 0.63 MG/3 ML NEB RESP TX SCH (19:02)
[2020-05-19] MEDS ORDERED: LEVOFLOXACIN INJ 500 MG in PREMIX 1 EACH IV SCH (20:00)
[2020-05-19] MEDS: GABAPENTIN 100 MG CAPSULE PEG SCH (20:27)
[2020-05-19] MEDS: ENOXAPARIN 40 MG/0.4 ML SYRINGE SUBCUT SCH (20:27)
[2020-05-20] MEDS: ALBUTEROL 0.63 MG/3 ML NEB RESP TX SCH ×2 (00:20→07:30)
[2020-05-20] MEDS: INSULIN LISPRO 100 UNIT/ML SUBCUT SCH ×4 (00:55→18:15)
[2020-05-20] MEDS: AZTREONAM 500 MG in SYRINGE 1 EACH IV SCH ×3 (03:45→18:55)
[2020-05-20 04:08] LABS: Basophils % 0.3 % (0.0-0.8); Eosinophils # 0.2 10*3/uL (0.0-0.87); Eosinophils % 1.7 % (0.00-10.9); Hematocrit 26.6 VOL% (35.7-47.0); Hemoglobin 7.7 GM/DL (12.0-16.0); Immature Granulocytes % 0.7 %; Immature Granulocytes Absolute 0.07 #; Lymphocytes # 1.7 10*3/uL (1.4-4.0); Lymphocytes % 16.2 % (21.3-54.2); Mean Corpuscular HGB Conc 28.9 GM/DL (32-36); Mean Corpuscular Volume 91.1 FL (87-102); Mean Platelet Volume 9.2 FL (9.6-12.0); Monocytes % 8.2 % (1.7-12.7); Neutrophils % 72.9 % (38.7-73.9); Platelet Count 347 T/CUMM (130-400); Red Blood Count 2.92 MC/CUMM (3.8-5.5); White Blood Count 10.2 T/CUMM (4-12)
[2020-05-20 04:47] LABS: Hypochromasia 2+; Platelet Estimate Adequate
[2020-05-20 04:56] LABS: Calcium 8.8 MG/DL (8.5-10.1); Osmolality,Calculated 313.6 MOS/KG (273-304)
[2020-05-20 04:59] LABS: Prealbumin 4.9 MG/DL (20-40)
[2020-05-20] MEDS: ACETAMINOPHEN 325 MG TABLET PEG PRN (05:26)
[2020-05-20] MEDS: ASPIRIN CHEW 81 MG TABLET PO SCH (09:57)
[2020-05-20] MEDS: ASCORBIC ACID 500 MG TABLET PEG SCH (09:57)
[2020-05-20] MEDS: PANTOPRAZOLE 40 MG VIAL IV SCH (09:57)
[2020-05-20] MEDS: MAGNESIUM OXIDE 400 MG TABLET PEG SCH (09:58)
[2020-05-20] MEDS: CHOLECALCIFEROL 1,000 UNIT TABLET PEG SCH (09:58)
[2020-05-20] MEDS: MULTIVITAMIN LIQUID (CENTRUM) 60 ML BOTTLE PO SCH (09:58)
[2020-05-20] MEDS: SODIUM HYPOCHLORITE 0.25% IRRIG 473 ML BOTTLE TOP SCH (09:58)
[2020-05-20] MEDS: CLINDAMYCIN INJ 600 MG in PREMIX 1 EACH IV SCH ×2 (10:56→18:15)
[2020-05-20] MEDS: ALBUTEROL 1.25 MG/3 ML NEB RESP TX SCH ×2 (12:29→19:12)
[2020-05-20] MEDS: ENOXAPARIN 40 MG/0.4 ML SYRINGE SUBCUT SCH (21:39)
[2020-05-20] MEDS: GABAPENTIN 100 MG CAPSULE PEG SCH (21:39)
[2020-05-21] MEDS: INSULIN LISPRO 100 UNIT/ML SUBCUT SCH ×2 (01:48→06:33)
[2020-05-21] MEDS: CLINDAMYCIN INJ 600 MG in PREMIX 1 EACH IV SCH ×2 (02:43→10:23)
[2020-05-21] MEDS: AZTREONAM 500 MG in SYRINGE 1 EACH IV SCH (03:33)
[2020-05-21 07:04] LABS: Basophils % 0.3 % (0.0-0.8); Eosinophils # 0.2 10*3/uL (0.0-0.87); Eosinophils % 1.9 % (0.00-10.9); Hematocrit 25.7 VOL% (35.7-47.0); Hemoglobin 7.7 GM/DL (12.0-16.0); Immature Granulocytes % 0.8 %; Immature Granulocytes Absolute 0.07 #; Lymphocytes # 1.7 10*3/uL (1.4-4.0); Lymphocytes % 18.8 % (21.3-54.2); Mean Corpuscular Volume 88.3 FL (87-102); Mean Platelet Volume 9.3 FL (9.6-12.0); Monocytes % 9.5 % (1.7-12.7); Neutrophils % 68.7 % (38.7-73.9); Platelet Count 328 T/CUMM (130-400); Red Blood Count 2.91 MC/CUMM (3.8-5.5); White Blood Count 9.1 T/CUMM (4-12)
[2020-05-21] MEDS: ALBUTEROL 1.25 MG/3 ML NEB RESP TX SCH ×3 (07:20→12:13)
[2020-05-21 07:31] LABS: Calcium 8.5 MG/DL (8.5-10.1); Calcium 8.8 MG/DL (8.5-10.1); Osmolality,Calculated 293.8 MOS/KG (273-304); Osmolality,Calculated 296.7 MOS/KG (273-304)
[2020-05-21 07:38] LABS: Eosinophils 4 % (0-10); Lymphocytes 18 % (20-55); Segmented Neutrophils 72 % (50-85); Total Cells Counted 100
[2020-05-21 07:39] LABS: Hypochromasia 2+; Microcytosis 1+; Platelet Estimate Adequate
[2020-05-21] MEDS: MAGNESIUM OXIDE 400 MG TABLET PEG SCH (10:21)
[2020-05-21] MEDS: ASCORBIC ACID 500 MG TABLET PEG SCH (10:21)
[2020-05-21] MEDS: ASPIRIN CHEW 81 MG TABLET PO SCH (10:22)
[2020-05-21] MEDS: CHOLECALCIFEROL 1,000 UNIT TABLET PEG SCH (10:22)
[2020-05-21] MEDS: SODIUM HYPOCHLORITE 0.25% IRRIG 473 ML BOTTLE TOP SCH (10:22)
[2020-05-21] MEDS: PANTOPRAZOLE 40 MG VIAL IV SCH (10:22)
[2020-05-21 12:25] VITALS: BP 132/61
[2020-05-21] MEDS: MULTIVITAMIN LIQUID (CENTRUM) 60 ML BOTTLE PO SCH (12:31)
== END 2020-05-21 14:35 | disposition hospice, inpatient (51) | DRG 853 ==
LOC: EDBD → EDUNIT# → N.ED 04:45 → N.EDINP 09:09 → SUATTDRO 09:09 → N.3E 17:15 → N.ICU 05-15 01:21 → N.3E 05-18 18:49
PROVIDERS: ADMIT Internal Medicine; ATTEND Emergency Medicine